=== PATIENT | female | born 1945 | race Caucasian/White ===

== ENCOUNTER 2017-08-25 14:00 | Inpatient (IN) ==
[2017-08-25 17:55] LABS: Appearance,Urine CLEAR; Bilirubin,Urine NEG (NEG); Color,Urine YELLOW; Glucose,Urine (UA) NEGATIVE (NEG); Leukocyte Esterase,Urine NEG /uL (NEG); Nitrate,Urine NEG (NEG); Protein,Urine NEG (NEG); Specific Gravity,Urine 1.017 (1.000-1.035); Urine Blood NEG mg/dL (<0.03); Urobilinogen,Urine NEG (NEG)
[2017-08-25 19:58] LABS: Blood Urea Nitrogen 15 mg/dl (8-23)
[2017-08-25 20:24] LABS: Basophils # (Auto) 0 K/mcL (0.0-0.3); Basophils % (Auto) 0.3 % (0.0-2.0); Eosinophils # (Auto) 0.2 K/mcL (0.0-0.7); Eosinophils % (Auto) 2.6 % (0.0-7.0); Granulocytes % (Auto) 63.4 % (38.0-78.0); Lymphocytes # (Auto) 1.6 K/mcL (1.5-4.8); Lymphocytes % (Auto) 27.4 % (15.5-49.0); Mean Cell Volume 94.4 fL (80.0-100.0); Mean Corpuscular HGB Conc 33.8 g/dL (31.0-36.0); Monocytes # (Auto) 0.4 K/mcL (0.1-0.9); Monocytes % (Auto) 6.3 % (1.0-12.0); Platelet Count 225 K/mcL (140-440); RBC 4.37 M/mcL (4.00-5.20); Red Cell Distribution Width 13.4 % (11.5-14.5)
[2017-08-31] MEDS ORDERED: CELECOXIB 200 MG CAPSULE PO SCH (05:00)
[2017-08-31] MEDS ORDERED: PREGABALIN 75 MG CAPSULE PO SCH (05:00)
[2017-08-31] MEDS ORDERED: ceFAZolin 1 GM VIAL IV SCH (05:00)
[2017-08-31] MEDS ORDERED: oxyCODONE 10 MG TAB.ER.12H PO SCH (05:00)
[2017-08-31] MEDS ORDERED: GENTAMICIN SULFATE 800 MG/20 ML VIAL IR ONE (12:42)
[2017-08-31] MEDS ORDERED: BENZOCAINE/MENTHOL 1 LOZENGE PO PRN ×2 (13:28→13:40)
[2017-08-31] MEDS ORDERED: PROMETHAZINE 25 MG/ML VIAL IV PRN (13:28)
[2017-08-31] MEDS ORDERED: diphenhydrAMINE 50 MG/ML VIAL IV PRN (13:28)
[2017-08-31] MEDS ORDERED: IPRATROPIUM/ALBUTEROL 3 ML AMPUL.NEB NEB PRN (13:28)
[2017-08-31] MEDS ORDERED: ACETAMINOPHEN 1,000 MG/100 ML BOTTLE IV ONE (13:28)
[2017-08-31] MEDS ORDERED: ONDANSETRON 4 MG/2 ML VIAL IV PRN ×2 (13:28→13:40)
[2017-08-31] MEDS ORDERED: NALOXONE HCL 0.4 MG/ML VIAL IV PRN (13:28)
[2017-08-31] MEDS ORDERED: fentaNYL 100 MCG/2 ML VIAL IV PRN (13:28)
[2017-08-31] MEDS ORDERED: LACTATED RINGERS 250 ML IV PRN (13:28)
[2017-08-31] MEDS ORDERED: FLUMAZENIL 0.1 MG/ML ML IV PRN (13:28)
[2017-08-31] MEDS ORDERED: MEPERIDINE 25 MG/ML SYRINGE IV PRN (13:28)
[2017-08-31] MEDS ORDERED: LACTATED RINGERS 1,000 ML IV SCH (13:30)
[2017-08-31] MEDS ORDERED: RIZATRIPTAN 10 MG TABLET PO PRN (13:38)
[2017-08-31] MEDS ORDERED: POLYVINYL ALCOHOL OPHTH DROPS 15ML BOTTLE OU PRN (13:38)
[2017-08-31] MEDS ORDERED: SENNOSIDES/DOCUSATE SODIUM 1 TAB TABLET PO PRN (13:38)
[2017-08-31] MEDS ORDERED: LORazepam 1 MG TABLET PO PRN (13:38)
--- NOTE | 2017-08-31 13:38 | Brief Operative Note ---
Date of procedure: 08/31/17 Pre-op diagnosis: left hip oa Post-op diagnosis: same Procedure: left total hip arthroplasty Grafts/Implants: Yes Anesthesia: GETA Complications: none Surgeon: Ridge Michelle Dba: Karlie Arreola Estimated blood loss (cc): 100 Specimens Removed/Pathology: none sent Condition: stable Disposition: PACU
[2017-08-31] MEDS ORDERED: ONDANSETRON ODT 4 MG TABLET SL PRN (13:40)
[2017-08-31] MEDS ORDERED: METHOCARBAMOL 750 MG TABLET PO PRN (13:40)
[2017-08-31] MEDS ORDERED: DEXTROSE 31 GM ORAL.SUSP PO PRN (13:40)
[2017-08-31] MEDS ORDERED: POLYETHYLENE GLYCOL 3350 17 GM PACKET PO PRN (13:40)
[2017-08-31] MEDS ORDERED: HYDROmorphone 2 MG/ML SYRINGE IV PRN (13:40)
[2017-08-31] MEDS ORDERED: FLEETS ADULT ENEMA PR PRN (13:40)
[2017-08-31] MEDS ORDERED: KETOROLAC 15 MG/ML VIAL IV PRN (13:40)
[2017-08-31] MEDS ORDERED: HYDROcodone/APAP 10/325MG TABLET PO PRN (13:40)
[2017-08-31] MEDS ORDERED: BISACODYL 10 MG SUPP.RECT PR PRN (13:40)
[2017-08-31] MEDS ORDERED: MAGNESIUM HYDROXIDE 30 ML ORAL.SUSP PO PRN (13:40)
[2017-08-31] MEDS ORDERED: TRANEXAMIC ACID 1,000 MG/10 ML VIAL IV ONE ×2 (13:40→13:59)
[2017-08-31] MEDS ORDERED: DEXTROSE 50% 50 ML VIAL IV PRN (13:40)
[2017-08-31] MEDS ORDERED: PHENYLEPHRINE 10 MG/ML VIAL IV ONE (13:59)
[2017-08-31] MEDS ORDERED: PROPOFOL 200 MG/20 ML VIAL IV ONE (13:59)
[2017-08-31] MEDS ORDERED: LIDOCAINE HCL/PF 100 MG/5 ML SYRINGE IV ONE (13:59)
[2017-08-31] MEDS ORDERED: KETAMINE 10 MG/ML ML IV ONE (13:59)
[2017-08-31] MEDS ORDERED: ONDANSETRON 4 MG/2 ML VIAL IV ONE (13:59)
[2017-08-31] MEDS ORDERED: DEXAMETHASONE 10 MG/ML VIAL IV ONE (13:59)
[2017-08-31] MEDS ORDERED: GLYCOPYRROLATE 0.2 MG/ML VIAL IV ONE (13:59)
[2017-08-31] MEDS ORDERED: ePHEDrine 50 MG/ML AMPUL IV ONE (13:59)
[2017-08-31] MEDS ORDERED: MIDAZOLAM 2 MG/2 ML VIAL IV ONE (13:59)
--- NOTE | 2017-08-31 14:08 | Operative Note ---
DATE OF OPERATION: 08/31/2017 PREOPERATIVE DIAGNOSIS: Degenerative joint disease, left hip. POSTOPERATIVE DIAGNOSIS: Degenerative joint disease, left hip. PROCEDURE: Left total hip arthroplasty. SURGEON: Trenton Michelle M.D. SITE SAFETY COORDINATOR SURGEON: Karlie Arreola PA-C ANESTHESIA: Spinal with LMA assist. ESTIMATED BLOOD LOSS: 100 mL COMPLICATIONS: None noted. SPECIMENS REMOVED: None. DRAINS: None. IMPLANTS: DePuy Woodbury Gription acetabular shell 52 mm, DePuy [place] AltrX polyethylene acetabular liner neutral 36 x 52, DePuy Tri-Lock BPS femoral stem with Gription size 6 standard, DePuy Biolox Delta ceramic femoral head +1.5 36 mm, DePuy [place] hole eliminator PS. INDICATIONS: The patient has had a longstanding history of worsening pain in the hip that has failed conservative treatment. Radiographs have confirmed advanced degenerative joint disease. After a long discussion about treatment options, the patient elected to proceed with a hip arthroplasty. The risks and benefits were discussed with the patient in detail including, but not limited to, the risks of anesthesia, problems with the heart or lungs related to anesthesia, infection, compromise or injury to the nerves and blood vessels, deep venous thrombosis, pulmonary embolism, pneumonia, continued pain after surgery, worsening pain or symptoms after surgery, swelling, loss of motion, instability, leg length discrepancy, and need for repeat surgery. DESCRIPTION OF PROCEDURE: The patient was seen in pre-anesthesia waiting room where all questions were answered and the correct side and site were identified and marked. The patient was then brought to the operating room and administered the anesthetic and given pre-operative antibiotics. A time-out was then called. The patient was placed in the lateral decubitus position with all prominences well-padded using the [place] frame and the extremity was prepped and draped in the usual sterile fashion. Anesthesia gave the patient 1 gm of tranexamic acid via an intravenous route. A standard posterior approach was made. We dissected through the skin and subcutaneous tissue to the deep fascia. The deep fascia was split in line with the incision and a Charnley retractor was placed. We exposed, tagged, and incised the short external rotators and piriformis tendon and retracted them posteriorly to help protect the sciatic nerve which was palpated throughout the case. We then performed a T-capsulotomy and tagged the capsule edges. Prior to dislocating the hip, we set a length and offset gauge from a Steinmann pin in the iliac wing to a manjit on the greater trochanter. The hip was then dislocated and a femoral neck osteotomy was performed to the pre-surgical templated level off the lesser trochanter. The head was removed and sized. We next turned our attention to the acetabulum. Retractors were placed for optimal visualization. A complete labral excision was performed. The capsule was preserved for later closure. We began reaming using anatomic landmarks with the DePuy Woodbury acetabular system. We medialized the cup and reamed up to provide good fill and coverage of the trial. When the trial was stable and appropriately positioned with approximately 20 degrees of anteversion and 45 degrees of abduction, we impacted the DePuy Woodbury cup and placed a cancellous screw in the posterior-superior quadrant. Osteophytes were removed from around the shell. We placed the trial liner and turned our attention to the femur. We placed retractors for visualization, internally rotated the femur, and established intramedullary access. We broached using the DePuy Tri-Lock stem to a stable platform medial, lateral, and rotationally with the appropriate version. We then performed a calcar reaming off the broach. Trials were then placed and optimized for leg length and stability. We used the leg length and offset guide to confirm our trials. Best stability, length, and offset characteristics were obtained with these sizes. We removed all trials and impacted the polyethylene acetabular liner in a standard fashion after a thorough irrigation. We then impacted the femoral stem to its broached location and placed the head. Final reduction was performed. Again, good stability, leg length, and offset characteristics were noted. We irrigated with three liters of antibiotic saline. We closed the capsule with #2 FiberWire. We placed a deep drain and closed the fascia with a combination of looped #0 Maxon and #0 Vicryl. We closed the subcutaneous tissue and skin in layers out to melanie in the skin. A sterile pressure dressing and abduction wedge was applied. All needle and sponge counts were correct. The patient was transferred to the recovery room in stable condition. ANAND:tristen Job ID: [id number] Doc ID: [id number] Trenton Michelle MD
--- NOTE | 2017-08-31 14:45 | XRay Report ---
CLINICAL INFORMATION: Postsurgical follow-up TECHNIQUE: AP bilateral hips. Crosstable lateral left hip. COMPARISON: Preoperative evaluation dated 01/01/2017 FINDINGS: Status post bilateral total hip arthroplasty. Left hip arthroplasty was done in the interval since previous examination. Normal anatomic alignment. IMPRESSION: Bilateral total hip arthroplasties Interpreted and Authenticated by: Ridge Esquivel 08/31/17
[2017-08-31] MEDS: 0.9 % SODIUM CHLORIDE 1,000 ML IV SCH (15:05)
[2017-08-31] MEDS: CARVEDILOL 3.125 MG TABLET PO SCH (16:52)
[2017-08-31] MEDS: oxyCODONE/APAP 5/325MG TABLET PO PRN (16:52)
[2017-08-31] MEDS: INSULIN LISPRO 1 UNIT/0.01 ML UNIT SQ SCH ×2 (16:53→20:47)
[2017-08-31] MEDS: 0.9 % SODIUM CHLORIDE 10 ML SYRINGE IV SCH ×2 (16:54→23:28)
[2017-08-31] MEDS: ASPIRIN 325 MG ENTERIC COATED TABLET PO SCH (20:24)
[2017-08-31] MEDS: ceFAZolin 1 GM VIAL IV SCH (20:24)
[2017-08-31] MEDS: DOCUSATE SODIUM 100 MG CAPSULE PO SCH (20:25)
[2017-08-31] MEDS: TRIAMCINOLONE CREAM 0.1% 15G 1 DOSE TUBE TOPICAL SCH (20:50)
[2017-08-31] MEDS ORDERED: GABAPENTIN 300 MG CAPSULE PO SCH (21:00)
[2017-08-31] MEDS ORDERED: SENNOSIDES 1 TABLET PO SCH (21:00)
[2017-08-31] MEDS ORDERED: SIMVASTATIN 10 MG TABLET PO SCH (21:00)
[2017-08-31] MEDS ORDERED: LATANOPROST OPHTH DROPS 2.5ML BOTTLE OU SCH (21:00)
[2017-08-31] MEDS ORDERED: LOSARTAN 50 MG TABLET PO SCH (21:00)
[2017-09-01] MEDS: 0.9 % SODIUM CHLORIDE 1,000 ML IV SCH ×2 (00:05→04:24)
[2017-09-01] MEDS: oxyCODONE/APAP 5/325MG TABLET PO PRN ×3 (00:48→11:31)
[2017-09-01] MEDS: 0.9 % SODIUM CHLORIDE 10 ML SYRINGE IV SCH ×2 (00:52→04:24)
[2017-09-01] MEDS: ceFAZolin 1 GM VIAL IV SCH (04:24)
--- NOTE | 2017-09-01 07:18 | Discharge Summary ---
Providers - Providers Patient information: Note initiated : 09/01/17 at 7:16 am Service Date, if different from initiated Date: [] Patient: Zeynep Moreno 71 y/o F admitted on 08/31/17 for Left Total Hip Arthroplasty Posterior. Chief Complaint: [s/p left ZORAIDA Patient is POD #1 s/p left ZORAIDA. She is doing quite well and reports minimal pain. She denies numbness, tingling or calf pain in either lower extremity. She has no questions or concerns at this time.] Discharge date: 09/01/17 Hospitalization Hospital course: Patient was brought to the OR yesterday for left ZORAIDA which went on without complication. She was admitted overnight for pain control/observation. She will d/c to home today or tomorrow and follow up in 10-14 days for post op care. Discharge diagnosis: hip osteoarthritis Exam - Exam Incision healing: Yes Incision draining: No Incision red: No Incision swollen: No Incision inflamed: No Clean and dry: Yes Weight bearing status: as tolerated (with assistive device) Ortho Discharge - ZORAIDA - Patient Instructions Diet: Regular Diet Activity: activity as tolerated, ambulate with assistive device, weight bearing as tolerated Total Hip Protocol: Follow activity instructions as provided by Physical Therapy. Dressing Care: May shower in 2 days - Follow Up Plan Follow Up Appointments: Karlie Arreola PA-C [Physician Mincemeat Maker] - 09/15/17 10:00 am Disposition: Home, Self-Care Prognosis: Fair Rehab Potential: Fair Overall status at discharge: patient is progressing back to baseline - Orders For Discharge Prescriptions: Aspirin [Ecotrin] 325 mg PO BID #60 tab.ec oxyCODONE/APAP [Percocet 5-325 mg] 1 - 2 tab PO Q4-6HP PRN #60 tab PRN Reason: Pain Additional Discharge Orders: Physical Therapy at Discharge - ZORAIDA Location: Determined By Patient Pending Studies Resuscitation Status Full Code Diet Regular Diet Start WedAug 31 134 Aspirin (Ecotrin) 325 mg PO BID [facility] Last Admin: 08/31/17 20:24 Dose: 325 mg Carvedilol (Coreg) 3.125 mg PO BIDCC [facility] Last Admin: 08/31/17 16:52 Dose: 3.125 mg Diagnostic Test (Pha) (Accu-Chek) 1 each FS ACHS [facility] Last Admin: 08/31/17 20:37 Dose: 1 each Admin: 08/31/17 16:53 Dose: 1 each Docusate Sodium (Colace) 100 mg PO BID [facility] Last Admin: 08/31/17 20:25 Dose: 100 mg Gabapentin (Neurontin) 1,200 mg PO QHS [facility] Last Admin: 08/31/17 22:36 Dose: 1,200 mg Hydromorphone HCl (Dilaudid) 0 mg IV Q2HP PRN PRN Reason: PAIN LEVEL > 6 Last Admin: 08/31/17 17:44 Dose: 1 mg Sodium Chloride (Sodium Chloride 0.9%) 1,000 mls @ 125 mls/hr IV .Q8H [facility] Last Admin: 09/01/17 04:24 Dose: Admin: 09/01/17 00:05 Dose: Not Given Infusion: 08/31/17 22:38 Dose: 125 mls/hr Admin: 08/31/17 15:05 Dose: 125 mls/hr Insulin Human Lispro (Humalog) 0 unit SQ ACHS [facility] PRN Reason: Protocol Last Admin: 08/31/17 20:47 Dose: 6 unit Admin: 08/31/17 16:53 Dose: Not Given Ketorolac Tromethamine (Toradol) 15 mg IV Q6HP PRN PRN Reason: Pain Stop: 09/02/17 13:42 Last Admin: 08/31/17 20:47 Dose: 15 mg Latanoprost (Xalatan Ophth Drops) 1 gtt OU [facility] Last Admin: 08/31/17 22:37 Dose: 1 gtt Losartan Potassium (Cozaar) 100 mg PO [facility] Last Admin: 08/31/17 20:25 Dose: 100 mg Oxycodone/Acetaminophen (Percocet 5-325 Mg) 1 - 2 tab PO Q4-6HP PRN PRN Reason: Pain Last Admin: 09/01/17 00:48 Dose: 2 tab Admin: 08/31/17 16:52 Dose: 2 tab Senna (Senokot) 2 tab PO [facility] Last Admin: 08/31/17 20:25 Dose: 2 tab Simvastatin (Zocor) 5 mg PO [facility] Last Admin: 08/31/17 20:24 Dose: 5 mg Sodium Chloride (Saline Flush) 10 ml IV Q8 [facility] Last Admin: 09/01/17 04:24 Dose: 10 ml Admin: 09/01/17 00:52 Dose: 10 ml Admin: 08/31/17 23:28 Dose: Not Given Admin: 08/31/17 16:54 Dose: Not Given Triamcinolone Acetonide (Kenalog Cream 0.1%) 1 dose TOPICAL BID [facility] Last Admin: 08/31/17 20:50 Dose: Not Given Shift Summary 09/01/17 03:25 Shift Summary by Too Aguirre on RA. Dressing to left hip CDI. No complaints of numbness or tingling. Ambulates to BR w/FWW and SBA. Ambulated in halls x1 this shift. Receiving 2 percocets and toradol for pain control. Last admin of percocet @ 49 and toradol @ 2049. Tolerating diet and oral fluids. IV to left FA SL. PVR's have been 136 & 146mL tonight. Using IS. Initialized on 09/01/17 03:25 - END OF NOTE Exam Vital signs: Temp Pulse Resp BP Pulse Ox 98.3 F 72 15 95/58 97 09/01/17 06:46 09/01/17 04:00 09/01/17 06:46 09/01/17 06:46 09/01/17 06:46 Musculoskeletal: other (full AROM right LE & left knee/ankle/foot. b/l LE NVI. Motor and sensory grossly intact) Skin: other (incision CDI without erythema or drainage) Neurologic: sensation intact to touch Psychiatric: oriented to person, place and time Additional findings: left hip x-ray reviewed, shows an intact and appropriately aligned total arthroplasty with no evidence of bony injury or other acute abnormalities.
[2017-09-01] MEDS: INSULIN LISPRO 1 UNIT/0.01 ML UNIT SQ SCH ×2 (07:21→11:34)
[2017-09-01] MEDS ORDERED: OMEPRAZOLE 20 MG CAPSULE PO PRN (07:30)
[2017-09-01] MEDS ORDERED: metFORMIN 850 MG TABLET PO SCH (08:00)
[2017-09-01] MEDS: ASPIRIN 325 MG ENTERIC COATED TABLET PO SCH (08:25)
[2017-09-01] MEDS: DOCUSATE SODIUM 100 MG CAPSULE PO SCH (08:25)
[2017-09-01] MEDS: CARVEDILOL 3.125 MG TABLET PO SCH (08:26)
[2017-09-01] MEDS: TRIAMCINOLONE CREAM 0.1% 15G 1 DOSE TUBE TOPICAL SCH (08:27)
[2017-09-01] MEDS ORDERED: FEXOFENADINE 180 MG TABLET PO SCH (09:00)
[2017-09-01] MEDS ORDERED: TRIAMTERENE/HYDROCHLOROTHIAZID 1 TABLET PO SCH (09:00)
== END 2017-09-01 14:00 | disposition home or self-care (01) | DRG 470 ==
LOC: MEDSUR 08-31 09:43
PROVIDERS: ADMIT Orthopaedic Surgery Sports Medicine; ATTEND Orthopaedic Surgery Sports Medicine

== ENCOUNTER 2018-01-31 06:43 | Inpatient (IN) ==
[2018-01-31] MEDS ORDERED: IOPAMIDOL 100 ML BOTTLE IV ONE (06:44)
[2018-01-31] MEDS ORDERED: ONDANSETRON 4 MG/2 ML VIAL IV ONE (07:11)
[2018-01-31] MEDS: LACTATED RINGERS 1,000 ML IV SCH (07:13)
--- NOTE | 2018-01-31 07:25 | Emergency Department Note ---
Abdominal Pain HPI - General Chief Complaint: Abdominal Pain Stated Complaint: abd pain Time Seen by Provider: 01/31/18 06:48 Source: patient Mode of arrival: ambulatory Limitations: no limitations - History of Present Illness HPI Narrative: This patient began having lower abdominal pain during the night associated with some nausea. She thought perhaps she might be constipated and she has been taking some iron and oxycodone. She is scheduled for a knee replacement tomorrow. She is diagnosed with ovarian cancer 2 years ago and has had 3 surgeries for that. This pain is constant in the pelvic area. - Related Data Home Medications Medication Instructions Recorded Confirmed latanoprost 0.005 % eye drops 1 drp OU HS 09/30/15 01/25/18 lorazepam 1 mg tablet 1 mg PO HSP PRN 7 Days #28 tab 12/01/16 01/25/18 omeprazole 20 mg capsule,delayed 20 mg PO DAILYP PRN cap 08/19/17 01/25/18 release Cyanocobalamin (Vitamin B-12) 500 mcg PO DAILY 08/25/17 01/25/18 [Vitamin B-12] Lactobacillus [Culturelle] 1 cap PO DAILY 08/25/17 01/25/18 Multivit,Ther Iron,Ca,FA & Min 1 tab PO DAILY 08/25/17 01/25/18 [Multivitamin W/Minerals] Polyvinyl Alcohol [Liquitears] 1 drp OU DAILYP PRN 08/25/17 01/25/18 Sennosides/Docusate Sodium 1 tab PO DAILYP PRN 08/25/17 01/25/18 [Senna-Docusate Sodium Tablet] metFORMIN HCL [Glucophage] 850 mg PO [facility] 08/25/17 01/25/18 folic acid 400 mcg tablet 400 mcg PO QDAY 11/11/17 01/25/18 gabapentin 300 mg capsule 1,200 mg PO QPM 90 Days #360 cap 11/11/17 01/25/18 pyridoxine (vitamin B6) 100 mg 100 mg PO QDAY tab 11/11/17 01/25/18 tablet Calcium Carbonate/Vitamin D3 3 tab PO DAILY 01/25/18 01/25/18 [Calcium 500-Vit D3 600 Caplet] Ferrous Sulfate [Feosol] 325 mg PO HS 01/25/18 01/25/18 Previous Rx's Medication Instructions Recorded oxyCODONE/APAP [Percocet 5-325 mg] 1 - 2 tab PO Q4-6HP PRN #60 tab 09/01/17 losartan 100 mg tablet 100 mg PO HS #90 tab 11/12/17 rizatriptan 10 mg tablet 10 mg PO DAILYP PRN #18 tab 11/30/17 simvastatin 5 mg tablet 5 mg PO HS #90 tab 12/15/17 triamterene 37.5 1 tab PO DAILY #90 tab 01/05/18 mg-hydrochlorothiazide 25 mg tablet carvedilol 3.125 mg tablet 3.125 mg PO BID #180 tab 01/13/18 ropinirole 0.25 mg tablet 0.5 mg PO QPM #180 tab 01/21/18 Allergies Allergy/AdvReac Type Severity Reaction Status Date / Time latex Allergy Mild Rash Verified 01/31/18 06:48 Review of Systems All systems ED: reviewed and negative except as stated. Abdominal Pain PMH - Past Medical History [facility] Narrative: Medical History (Last Reviewed 11/19/17 @ 18:40 by Jackson Hoff PA-C) Enterocutaneous fistula (Resolved) Ovarian cancer (Chronic) Urinary tract infection (Resolved) Abdominal pain (Chronic) Large bowel obstruction (Resolved) Mass of colon (Resolved) Hyponatremia (Resolved) Hypokalemia (Resolved) IBS (irritable bowel syndrome) (Chronic) Gastritis (Resolved) Bronchitis with bronchospasm (Resolved) Epistaxis (Chronic) Trochanteric bursitis (Resolved 06/01/12) Sleep apnea (Chronic) Pseudophakia (Chronic) Overweight (Chronic) Osteopenia (Chronic) Open-angle glaucoma (Chronic) Onychomycosis (Chronic 07/11/13) Lung nodule (Resolved 12/21/14) Liver lesion (Chronic) Essential hypertension (Chronic) Hepatic cyst (Chronic) Headache (Chronic 07/11/13) Gastroesophageal reflux (Chronic) Diverticulosis of colon (Chronic) Diverticulitis of colon (Resolved) 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) Diabetes mellitus, type II (Chronic) DJD (degenerative joint disease) (Chronic) Colonic polyp (Chronic) Bronchitis (Chronic 07/11/13) Past Surgical History (Last Reviewed 11/19/17 @ 18:40 by Jackson Hoff PA-C) History of exploratory laparotomy (Chronic 11/14/16) History of appendectomy (Resolved) History of cataract surgery (Resolved) History of cholecystectomy (Resolved) History of colonoscopy (Resolved 10/04/13) History of colostomy reversal (Resolved 10/26/16) History of esophagogastroduodenoscopy (Resolved) History of hysterectomy (Resolved 10/26/16) History of left knee replacement (Resolved) History of resection of large bowel (Resolved Unknown) History of resection of small bowel (Resolved 10/26/16) History of right hip replacement (Resolved) History of salpingoophorectomy (Resolved 10/26/16) History of total left hip arthroplasty (Resolved) Family History (Last Reviewed 11/19/17 @ 18:40 by Jackson Hoff PA-C) Aunt Cardiovascular disease Uncle Cardiovascular disease Diabetes mellitus Mother Malignant neoplasm of ascending colon Father Family history of leukemia Medical history: Reports: DM, GERD, glaucoma, hyperlipidemia, hypertension, osteoporosis, other Family history: Reports: no significant family history - Social History Smoking status: Never smoker Alcohol use: Reports: Rarely Drug use: Reports: none Physical Exam Limitations: no limitations General appearance: alert Head: atraumatic Eye: Present: normal appearance ENT: normal exam Neck: Present: normal inspection Chest: Present: normal inspection Respiratory: Present: normal lung sounds bilaterally Cardiovascular: Present: regular rate, normal rhythm, normal heart sounds Abdominal: Present: soft, tenderness, normal bowel sounds. Absent: distention, guarding, rebound Abdominal tenderness: Present: suprapubic, mild Neurological: Present: alert Psychiatric: Present: normal affect, normal mood Skin: Present: warm, dry, intact Course Vital Signs Temperature 97.9 F 01/31/18 06:44 Pulse Rate 80 01/31/18 06:44 Respiratory Rate 18 01/31/18 06:44 Blood Pressure 146/78 01/31/18 06:44 Pulse Oximetry (%) 98 01/31/18 06:44 Temperature 97.9 F 01/31/18 06:44 Pulse Rate 78 01/31/18 08:46 Respiratory Rate 18 01/31/18 06:44 Blood Pressure 132/72 01/31/18 08:46 Pulse Oximetry (%) 98 01/31/18 08:46 Abdominal Pain - MDM Narrative Medical decision making narrative: This patient CT is pending final disposition per Dr. Tinoco. - Lab Data Lab results reviewed: Yes I reviewed the patient's lab results. Result diagrams: 01/31/18 07:12 01/31/18 07:12 Lab Results 01/31/18 01/31/18 Range/Units 07:12 07:12 WBC 5.9 (4.5-11.0) K/mcL RBC 4.31 (4.00-5.20) M/mcL Hgb 13.4 (12.0-15.0) g/dL Hct 39.5 (36.0-48.0) % POC Hct 39.0 (36.0-48.0) % MCV 91.6 (80.0-100.0) fL MCH 31.1 (26.0-34.0) pg MCHC 34.0 (31.0-36.0) g/dL RDW 15.1 H (11.5-14.5) % Plt Count 202 (140-440) K/mcL MPV 9.0 (7.4-10.4) fL Gran % 83.0 H (38.0-78.0) % Lymph % (Auto) 10.1 L (15.5-49.0) % [place] % (Auto) 6.3 (1.0-12.0) % Eos % (Auto) 0.3 (0.0-7.0) % Baso % (Auto) 0.3 (0.0-2.0) % Gran # 4.9 (1.8-8.0) K/mcL Lymph # (Auto) 0.6 L (1.5-4.8) K/mcL [place] # (Auto) 0.4 (0.1-0.9) K/mcL Eos # (Auto) 0 (0.0-0.7) K/mcL Baso # (Auto) 0 (0.0-0.3) K/mcL POC Sodium 134 (133-145) mmol/L Sodium 134 (133-145) mmol/L POC Potassium 3.3 (3.3-5.1) mmol/L Potassium 3.3 (3.3-5.1) mmol/L POC Chloride 91 L (96-108) mmol/L Chloride 91 L (96-108) mmol/L Carbon Dioxide 30 (22-30) mmol/L POC Total CO2 30 (22-30) mmol/L Anion Gap 13.0 (8-16) POC BUN 17 (8-23) mg/dl BUN 16 (8-23) mg/dl Creatinine 1.0 (0.6-1.1) mg/dl POC Creatinine 1.0 (0.6-1.1) mg/dl GFR Calculation 56 Glucose 157 H (70-105) mg/dL POC Glucose 157 H (70-105) mg/dL Calcium 9.6 (8.6-10.4) mg/dl POC WB Ioniz Calcium 1.11 L (1.16-1.32) mmol/L Total Bilirubin 1.2 H (0.0-1.0) mg/dL AST 20 (0-37) U/l ALT 21 (0-40) U/l Alkaline Phosphatase 74 (39-117) U/L Total Protein 6.7 (5.9-8.4) gm/dL Albumin 4.3 (3.2-5.2) gm/dL Globulin 2.4 (2.2-3.7) gm/dL Albumin/Globulin Ratio 1.8 (1.0-2.3) Disposition Pt seen by INDIVIDUAL SMALL GROUP INSTRUCTOR/PA only: No Referrals: Boom Shannon MD [Primary Care Provider] -
[2018-01-31 08:09] LABS: Basophils # (Auto) 0 K/mcL (0.0-0.3); Basophils % (Auto) 0.3 % (0.0-2.0); Eosinophils # (Auto) 0 K/mcL (0.0-0.7); Eosinophils % (Auto) 0.3 % (0.0-7.0); Lymphocytes # (Auto) 0.6 K/mcL (1.5-4.8); Lymphocytes % (Auto) 10.1 % (15.5-49.0); Mean Cell Volume 91.6 fL (80.0-100.0); Mean Corpuscular Hemoglobin 31.1 pg (26.0-34.0); Monocytes # (Auto) 0.4 K/mcL (0.1-0.9); Monocytes % (Auto) 6.3 % (1.0-12.0); Platelet Count 202 K/mcL (140-440); RBC 4.31 M/mcL (4.00-5.20); Red Cell Distribution Width 15.1 % (11.5-14.5)
[2018-01-31 08:32] LABS: ALT/SGPT 21 U/l (0-40); Albumin 4.3 gm/dL (3.2-5.2); Albumin/Globulin Ratio 1.8 (1.0-2.3); Alkaline Phosphatase 74 U/L (39-117); Blood Urea Nitrogen 16 mg/dl (8-23)
[2018-01-31 09:13] LABS: Appearance,Urine HAZY; Bilirubin,Urine NEG (NEG); Color,Urine YELLOW; Glucose,Urine (UA) NEGATIVE (NEG); Leukocyte Esterase,Urine NEG /uL (NEG); Protein,Urine NEG (NEG); Specific Gravity,Urine 1.017 (1.000-1.035); Urine Blood NEG mg/dL (<0.03); Urobilinogen,Urine NEG (NEG)
--- NOTE | 2018-01-31 10:12 | Cat Scan Report ---
CLINICAL INFORMATION: History of ovarian carcinoma. Abdominal pain COMPARISON: 03/25/2016 and 01/13/[address] TECHNIQUE: Following enteric contrast, 80 cc of Isovue-300 were injected intravenously, and 60 seconds later, 0.625 mm helical slices were obtained from the mid heart through the subtrochanteric regions. Following reconstruction, 2.5 mm sagittal, coronal and axial reformatted images were processed and reviewed at bone, lung and soft tissue windows. Five minutes later, 0.625 mm helical slices were obtained from the mid heart through the kidneys and viewed at soft tissue windows.The exam was performed using radiation dose optimization techniques including, but not limited to, automated exposure control, adjustment of the mA and/or kV according to patient size and use of iterative reconstruction technique. FINDINGS: Lung bases show no nodules or other abnormalities. No effusions. Visualized heart is unremarkable. Images through the abdomen show moderate stable fatty change within the liver. There are scattered cysts within the liver ranging up to 5.7 cm in the the posterior segment of the right hepatic lobe . These are all stable since the CT two years prior 03/25/2016. No evidence of hepatic metastases. Gallbladder is surgically absent. Intrahepatic common hepatic common bile ducts remain normal caliber. 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 Both kidneys are otherwise normal. The adrenal glands spleen, pancreas and aorta, including aortic branches, are normal in size, configuration and attenuation without focal lesion. Images through the pelvis show hysterectomy/oophorectomy changes. The urinary bladder is partially obscured by the beam hardening artifact from bilateral hip prostheses, but no gross abnormalities. There is a high-grade partial small bowel obstruction of the proximal jejunum with a transition point seen on coronal image 48, sagittal image 80 and axial image 99. At the transition point, multiple loops of moderately dilated proximal jejunum abruptly constrict into a decompressed distal small bowel. Ostensibly, this represents adhesion or stricture. The distal small bowel and colon are relatively decompressed. Partial colectomy changes are present near the splenic flexure and also in the distal sigmoid. There is no evidence of ascites, mesenteric studding, omental caking study other evidence for carcinomatosis - history of ovarian carcinoma acknowledged. Bone windows show stable degenerative changes in the lower thoracic and lumbar spine. IMPRESSION: 1. High-grade partial small bowel obstruction of the proximal jejunum ostensibly related to stricture or adhesions. The transition point is in the central false pelvis 2. No evidence of recurrent ovarian carcinoma 3. Stable hepatic cysts Interpreted and Authenticated by: Ridge Potts 01/31/18
[2018-01-31] MEDS ORDERED: ONDANSETRON 4 MG/2 ML VIAL IV PRN ×2 (10:52→15:15)
--- NOTE | 2018-01-31 10:55 | Emergency Department Note ---
Abdominal Pain HPI - General Chief Complaint: Abdominal Pain Stated Complaint: abd pain Time Seen by Provider: 01/31/18 06:48 Source: patient Mode of arrival: ambulatory Limitations: no limitations - History of Present Illness HPI Narrative: See history and physical dictated by Dr. mack. Patient had onset of abdominal pain approximately 8:30 PM last evening approximately 1 hour after eating dinner. Pain continued during the night as crampy bloating feeling with associated with nausea but no vomiting. She felt constipated. She has been taking iron for 2 weeks initially 1 per day and then recently 2 per day but not always faithful with this regimen. She also took a dose of oxycodone last evening for knee pain. She is scheduled for knee replacement surgery by Dr. Michelle tomorrow. She has not been eating or drinking during the night or this morning. - Related Data Home Medications Medication Instructions Recorded Confirmed latanoprost 0.005 % eye drops 1 drp OU HS 09/30/15 01/25/18 lorazepam 1 mg tablet 1 mg PO HSP PRN 7 Days #28 tab 12/01/16 01/25/18 omeprazole 20 mg capsule,delayed 20 mg PO DAILYP PRN cap 08/19/17 01/25/18 release Cyanocobalamin (Vitamin B-12) 500 mcg PO DAILY 08/25/17 01/25/18 [Vitamin B-12] Lactobacillus [Culturelle] 1 cap PO DAILY 08/25/17 01/25/18 Multivit,Ther Iron,Ca,FA & Min 1 tab PO DAILY 08/25/17 01/25/18 [Multivitamin W/Minerals] Polyvinyl Alcohol [Liquitears] 1 drp OU DAILYP PRN 08/25/17 01/25/18 Sennosides/Docusate Sodium 1 tab PO DAILYP PRN 08/25/17 01/25/18 [Senna-Docusate Sodium Tablet] metFORMIN HCL [Glucophage] 850 mg PO QAC 08/25/17 01/25/18 folic acid 400 mcg tablet 400 mcg PO QDAY 11/11/17 01/25/18 gabapentin 300 mg capsule 1,200 mg PO QPM 90 Days #360 cap 11/11/17 01/25/18 pyridoxine (vitamin B6) 100 mg 100 mg PO QDAY tab 11/11/17 01/25/18 tablet Calcium Carbonate/Vitamin D3 3 tab PO DAILY 01/25/18 01/25/18 [Calcium 500-Vit D3 600 Caplet] Ferrous Sulfate [Feosol] 325 mg PO HS 01/25/18 01/25/18 Previous Rx's Medication Instructions Recorded oxyCODONE/APAP [Percocet 5-325 mg] 1 - 2 tab PO Q4-6HP PRN #60 tab 09/01/17 losartan 100 mg tablet 100 mg PO HS #90 tab 11/12/17 rizatriptan 10 mg tablet 10 mg PO DAILYP PRN #18 tab 11/30/17 simvastatin 5 mg tablet 5 mg PO HS #90 tab 12/15/17 triamterene 37.5 1 tab PO DAILY #90 tab 01/05/18 mg-hydrochlorothiazide 25 mg tablet carvedilol 3.125 mg tablet 3.125 mg PO BID #180 tab 01/13/18 ropinirole 0.25 mg tablet 0.5 mg PO QPM #180 tab 01/21/18 Allergies Allergy/AdvReac Type Severity Reaction Status Date / Time latex Allergy Mild Rash Verified 01/31/18 06:48 Abdominal Pain PMH - Past Medical History Medical history: Reports: DM, GERD, glaucoma, hyperlipidemia, hypertension, osteoporosis, other Family history: Reports: no significant family history - Social History Smoking status: Never smoker Alcohol use: Reports: Rarely Drug use: Reports: none Physical Exam Limitations: no limitations General appearance: alert, in no apparent distress Head: atraumatic, normocephalic Eye: Present: EOMI Respiratory: Absent: respiratory distress Cardiovascular: Present: regular rate Abdominal: Present: soft, tenderness (Mostly in the left lower quadrant and mild but this is after pain medication.). Absent: distention, guarding, rebound , rigidity, organomegaly, ascites, mass Neurological: Present: alert, oriented X3 Psychiatric: Present: normal affect, normal mood Skin: Present: warm, dry Course Vital Signs Temperature 97.9 F 01/31/18 06:44 Pulse Rate 80 01/31/18 06:44 Respiratory Rate 18 01/31/18 06:44 Blood Pressure 146/78 01/31/18 06:44 Pulse Oximetry (%) 98 01/31/18 06:44 Temperature 97.9 F 01/31/18 06:44 Pulse Rate 81 06/18/18 10:30 Respiratory Rate 18 01/31/18 06:44 Blood Pressure 136/83 01/31/18 10:30 Pulse Oximetry (%) 97 01/31/18 10:30 Abdominal Pain - MDM Narrative Medical decision making narrative: Small bowel obstruction, high-grade, per CT of the abdomen. Labs are fairly unremarkable with a specific gravity of 1.017, normal CBC, normal CMP except for chloride of 91. Creatinine is 1.0 and past creatinines have been 0.6-1.0 most recently 0.9 quite frequently. 10:35 AM I spoke with Dr. Kendall, surgeon, regarding this patient's situation and he kindly accepted care of this patient being admitted to [facility] here at [facility]. - Lab Data Lab results reviewed: Yes I reviewed the patient's lab results. Result diagrams: 01/31/18 07:12 01/31/18 07:12 Lab Results 01/31/18 01/31/18 01/31/18 Range/Units 07:12 07:12 08:30 WBC 5.9 (4.5-11.0) K/mcL RBC 4.31 (4.00-5.20) M/mcL Hgb 13.4 (12.0-15.0) g/dL Hct 39.5 (36.0-48.0) % POC Hct 39.0 (36.0-48.0) % MCV 91.6 (80.0-100.0) fL MCH 31.1 (26.0-34.0) pg MCHC 34.0 (31.0-36.0) g/dL RDW 15.1 H (11.5-14.5) % Plt Count 202 (140-440) K/mcL MPV 9.0 (7.4-10.4) fL Gran % 83.0 H (38.0-78.0) % Lymph % (Auto) 10.1 L (15.5-49.0) % [place] % (Auto) 6.3 (1.0-12.0) % Eos % (Auto) 0.3 (0.0-7.0) % Baso % (Auto) 0.3 (0.0-2.0) % Gran # 4.9 (1.8-8.0) K/mcL Lymph # (Auto) 0.6 L (1.5-4.8) K/mcL [place] # (Auto) 0.4 (0.1-0.9) K/mcL Eos # (Auto) 0 (0.0-0.7) K/mcL Baso # (Auto) 0 (0.0-0.3) K/mcL POC Sodium 134 (133-145) mmol/L Sodium 134 (133-145) mmol/L POC Potassium 3.3 (3.3-5.1) mmol/L Potassium 3.3 (3.3-5.1) mmol/L POC Chloride 91 L (96-108) mmol/L Chloride 91 L (96-108) mmol/L Carbon Dioxide 30 (22-30) mmol/L POC Total CO2 30 (22-30) mmol/L Anion Gap 13.0 (8-16) POC BUN 17 (8-23) mg/dl BUN 16 (8-23) mg/dl Creatinine 1.0 (0.6-1.1) mg/dl POC Creatinine 1.0 (0.6-1.1) mg/dl GFR Calculation 56 Glucose 157 H (70-105) mg/dL POC Glucose 157 H (70-105) mg/dL Calcium 9.6 (8.6-10.4) mg/dl POC WB Ioniz Calcium 1.11 L (1.16-1.32) mmol/L Total Bilirubin 1.2 H (0.0-1.0) mg/dL AST 20 (0-37) U/l ALT 21 (0-40) U/l Alkaline Phosphatase 74 (39-117) U/L Total Protein 6.7 (5.9-8.4) gm/dL Albumin 4.3 (3.2-5.2) gm/dL Globulin 2.4 (2.2-3.7) gm/dL Albumin/Globulin Ratio 1.8 (1.0-2.3) Urine Color Yellow Urine Appearance Hazy Urine pH 7.0 (5.0-9.0) Ur Specific [place] 1.017 (1.000-1.035) Urine Protein Neg (NEG) mg/dL Urine Glucose (UA) Negative (NEG) mg/dL Urine Ketones Neg (NEG) mg/dL Urine Occult Blood Neg (<0.03) mg/dL Urine Nitrate Neg (NEG) Urine Bilirubin Neg (NEG) mg/dL Urine Urobilinogen Neg (NEG) mg/dL Ur Leukocyte Esterase Neg (NEG) /uL Ur Culture Indicated? No - Radiology Data Radiology results reviewed: Yes I reviewed the patient's radiology results. Disposition Pt seen by [facility] [facility] only: No Clinical Impression: Small bowel obstruction Abdominal pain Qualifiers: Abdominal location: left lower quadrant Qualified Code(s): R10.32 - Left lower quadrant pain Disposition: Xfer As Inpt ([facility]) Condition: Fair Referrals: Boom Shannon MD [Primary Care Provider] -
[2018-01-31] MEDS: 0.9 % SODIUM CHLORIDE 1,000 ML IV SCH ×3 (11:54→22:03)
--- NOTE | 2018-01-31 15:02 | General Surg History&Physical ---
History of Present Illness Patient information: Note initiated : 01/31/18 at 2:57 pm Service Date, if different from initiated Date: [] Patient: Zeynep Moreno a 72 y/o F admitted on 01/31/18 for Abd Pain. Chief Complaint: [small bowel obstruction] HPI: Ms. Moreno is a 72 year old F was admitted small bowel obstruction. The patient had onset of lower abdominal pain and bloating last evening after eating a regular meal. She did not have nausea or vomiting however. She had a small amount of flatus earlier during the day and then her last bowel movement was yesterday. Her weight has been stable. She states that the pain persisted all night she finally was seen in the emergency room with CT scan shows a definitive small bowel obstruction with a swirl of dilated loops of small bowel with proximal dilation and distal decompression. Colon is also decompressed. By history the patient presented in 2015 in March with a sigmoid colon mass with colon obstruction. On 27 March she had sigmoid colon resection with colostomy small bowel resection and left salpingo- oophorectomy. 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 She was referred to oncology and underwent chemotherapy. She then had total abdominal hysterectomy with right salpingo-oophorectomy and colostomy takedown on . She developed an anastomotic leak shortly thereafter and had exploratory laparotomy on 11/13/16. A hostile abdomen was encountered and the fistula could not be found. She was treated with an open abdomen with wound VAC and 2 months of TPN.. The fistula finally closed and she has done relatively well since then. Her CT shows changes suggestive of high-grade obstruction and she is counseled for laparotomy which will be done in the morning. Review of Systems - Constitutional weight gain - EENT Nose, mouth and throat: dry mouth - Cardiovascular no chest pain with activity, no dyspnea on exertion, no palpatations, no syncope - Respiratory snoring, no dyspnea on exertion, no wheezing - Gastrointestinal abdominal pain, cramping, heartburn, nausea, no vomiting - Musculoskeletal arthralgias, back pain, joint swelling, myalgias, numbness - Integumentary no changing lesions, no non-healing lesions, no pruritus, no rash - Neurological numbness, restless legs, no abnormal hearing, no confusion, no dizziness, no tremor(s) - Psychiatric anxiety, no depression - Endocrine no fatigue, no polydipsia, no polyphagia, no polyuria - Hematologic/Lymphatic no easy bleeding, no easy bruising, no lymphadenopathy - Allergic/Immunologic no tongue swelling, no throat swelling, no uticaria, no wheezing, no lip swelling Past History Past medical history: Metastatic ovarian carcinoma Diabetes mellitus type 2 Hypertension Gastroesophageal reflux disease Central obstructive sleep apnea Degenerative joint disease prior history of C. difficile colitis Past surgical history: Sigmoid colon resection with colostomy Small bowel resection Left salpingo-oophorectomy Total abdominal hysterectomy with right salpingo-oophorectomy Colostomy closure Exploratory laparotomy Cholecystectomy Left total knee arthroplasty Bilateral total hip arthroplasty Exploratory laparotomy with adhesiolysis Past family history: Coronary artery disease Diabetes mellitus Colon cancer Leukemia Past social history: Retired Former smoker Former drinker Denies drug use Medications and Allergies Home Medications Medication Instructions Recorded Confirmed Type latanoprost 0.005 % eye drops 1 drp OU HS 09/30/15 01/31/18 History lorazepam 1 mg tablet 1 mg PO HSP PRN 7 Days #28 tab 12/01/16 01/31/18 History omeprazole 20 mg capsule,delayed 20 mg PO DAILYP PRN cap 08/19/17 01/31/18 History release Cyanocobalamin (Vitamin B-12) 500 mcg PO DAILY 08/25/17 01/31/18 History [Vitamin B-12] Lactobacillus [Culturelle] 1 cap PO DAILY 08/25/17 01/31/18 History Multivit,Ther Iron,Ca,FA & Min 1 tab PO DAILY 08/25/17 01/31/18 History [Multivitamin W/Minerals] Polyvinyl Alcohol [Liquitears] 1 drp OU DAILYP PRN 08/25/17 01/31/18 History Sennosides/Docusate Sodium 1 tab PO DAILYP PRN 08/25/17 01/31/18 History [Senna-Docusate Sodium Tablet] metFORMIN HCL [Glucophage] 850 mg PO QAMCC 08/25/17 01/31/18 History oxyCODONE/APAP [Percocet 5-325 mg] 1 - 2 tab PO Q4-6HP PRN #60 tab 09/01/17 Rx folic acid 400 mcg tablet 400 mcg PO QDAY 11/11/17 01/31/18 History gabapentin 300 mg capsule 1,200 mg PO QPM 90 Days #360 cap 11/11/17 01/31/18 History pyridoxine (vitamin B6) 100 mg 100 mg PO QDAY tab 11/11/17 01/31/18 History tablet losartan 100 mg tablet 100 mg PO HS #90 tab 11/12/17 01/31/18 Rx rizatriptan 10 mg tablet 10 mg PO DAILYP PRN #18 tab 11/30/17 01/31/18 Rx simvastatin 5 mg tablet 5 mg PO HS #90 tab 12/15/17 01/31/18 Rx triamterene 37.5 1 tab PO DAILY #90 tab 01/05/18 01/31/18 Rx mg-hydrochlorothiazide 25 mg tablet carvedilol 3.125 mg tablet 3.125 mg PO BID #180 tab 01/13/18 01/31/18 Rx ropinirole 0.25 mg tablet 0.5 mg PO QPM #180 tab 01/21/18 01/31/18 Rx Calcium Carbonate/Vitamin D3 3 tab PO DAILY 01/25/18 01/31/18 History [Calcium 500-Vit D3 600 Caplet] Ferrous Sulfate [Feosol] 325 mg PO HS 01/25/18 01/31/18 History Allergies Allergy/AdvReac Type Severity Reaction Status Date / Time latex Allergy Mild Rash Verified 01/31/18 06:48 Exam Temp Pulse Resp BP Pulse Ox 97.6 F 73 16 119/77 93 01/31/18 12:00 01/31/18 11:12 01/31/18 12:00 01/31/18 12:00 01/31/18 12:00 - General physical appearance well developed, well nourished, no distress, moderate pain (diffuse lower abdominal tenderness) - Eyes PERRL, normal ocular movement - ENT normal pinna, normal nares, normal mucosa, no hearing loss, no congestion - Head Head exam IM: Present: atraumatic, normal inspection, normocephalic - Neck no masses, no bruits, trachea midline, no lymphadectomy, no venous distension - Cardiovascular Cardiovascular exam IM: Present: normal rate and rhythm, RRR, +S1, +S2. Absent : JVD, tachycardia - Respiratory normal expansion, normal respiratory effort, clear to percussion, clear to auscultation - Abdomen Abdomen: Present: soft, tender ( diffuse tenderness with guarding in lower abdomen), bowel sounds, distended ( moderate distention and lower abdomen) Hernia: Present: none - Genitourinary Present: normal external genitalia - Integumentary Present: no rash, no growths, no abnormal pigmentation - Neurologic Present: normal coordination, normal sensation - Musculoskeletal Present: normal gait, normal posture - Psychiatric Present: oriented to time, oriented to person, oriented to place, speech is normal, memory intact Assessment and Plan (1) Small bowel obstruction due to postoperative adhesions Status: Acute (2) Diabetes mellitus, type II Status: Chronic Qualifiers: Diabetes mellitus manager long term care insulin use: without manager long term care use Diabetes mellitus complication status: with neurologic complications Diabetes mellitus complication detail: with unspecified neuropathy Qualified Code(s): E11.40 - Type 2 diabetes mellitus with diabetic neuropathy, unspecified (3) Essential hypertension Status: Chronic Comment: Stable (4) Gastroesophageal reflux Status: Chronic Qualifiers: Esophagitis presence: esophagitis presence not specified Qualified Code(s) : K21.9 - Gastro-esophageal reflux disease without esophagitis (5) 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 Qualifiers: Osteoarthritis location: multiple joints Osteoarthritis type: primary Qualified Code(s): M15.0 - Primary generalized (osteo)arthritis
[2018-01-31] MEDS ORDERED: POTASSIUM PHOSPHATE 40 MEQ in DEXTROSE 5% IN WATER 500 ML IV ONE (16:00)
[2018-01-31] MEDS: PIPERACILLIN SODIUM/TAZOBACTAM 3.375 GM in DEXTROSE 5% IN WATER 50 ML IV SCH ×2 (16:01→20:29)
--- NOTE | 2018-01-31 16:43 | XRay Report ---
CLINICAL INFORMATION: PICC PLACEMENT COMPARISON: 03/01/2017 FINDINGS: Right PICC line tip overlies lies the tricuspid valve plane. Heart is mildly enlarged, but unchanged. Mediastinum and pulmonary vessels are normal. Lungs are clear. No effusions. IMPRESSION: PICC line tip overlies the tricuspid valve plane. Nurses were instructed to withdraw the line 4 cm Interpreted and Authenticated by: Ridge Potts 01/31/18
[2018-01-31] MEDS: PANTOPRAZOLE 40 MG VIAL IV SCH (16:48)
[2018-01-31] MEDS: 0.9 % SODIUM CHLORIDE 10 ML SYRINGE IV PRN ×2 (16:50→17:27)
[2018-01-31] MEDS: METOCLOPRAMIDE 10 MG/2 ML VIAL IV SCH (17:26)
[2018-01-31] MEDS: 0.9 % SODIUM CHLORIDE 10 ML SYRINGE IV SCH (20:34)
[2018-02-01] MEDS: METOCLOPRAMIDE 10 MG/2 ML VIAL IV SCH ×5 (00:05→23:52)
[2018-02-01] MEDS: PIPERACILLIN SODIUM/TAZOBACTAM 3.375 GM in DEXTROSE 5% IN WATER 50 ML IV SCH ×5 (00:05→23:52)
[2018-02-01] MEDS: 0.9 % SODIUM CHLORIDE 1,000 ML IV SCH ×4 (00:45→19:40)
[2018-02-01 05:54] LABS: Basophils # (Auto) 0 K/mcL (0.0-0.3); Basophils % (Auto) 0.3 % (0.0-2.0); Eosinophils # (Auto) 0.1 K/mcL (0.0-0.7); Eosinophils % (Auto) 0.9 % (0.0-7.0); Granulocytes % (Auto) 79.9 % (38.0-78.0); Lymphocytes # (Auto) 0.7 K/mcL (1.5-4.8); Lymphocytes % (Auto) 10.6 % (15.5-49.0); Mean Cell Volume 92.1 fL (80.0-100.0); Mean Corpuscular Hemoglobin 31.3 pg (26.0-34.0); Monocytes # (Auto) 0.5 K/mcL (0.1-0.9); Monocytes % (Auto) 8.3 % (1.0-12.0); Platelet Count 144 K/mcL (140-440); RBC 3.68 M/mcL (4.00-5.20); Red Cell Distribution Width 14.8 % (11.5-14.5)
[2018-02-01 06:33] LABS: ALT/SGPT 16 U/l (0-40); Albumin 3.5 gm/dL (3.2-5.2); Albumin/Globulin Ratio 1.8 (1.0-2.3); Alkaline Phosphatase 55 U/L (39-117); Bilirubin,Direct < 0.2 mg/dL (0.0-0.3); Blood Urea Nitrogen 11 mg/dl (8-23); Gamma Glutamyl Transpeptidase 13 U/L (5-36)
[2018-02-01] MEDS: 0.9 % SODIUM CHLORIDE 10 ML SYRINGE IV SCH ×2 (08:00→21:46)
[2018-02-01] MEDS: PANTOPRAZOLE 40 MG VIAL IV SCH ×2 (08:26→18:06)
[2018-02-01] MEDS ORDERED: DIATRIZOATE MEGLU/DIATRIZO SOD 30 ML BOTTLE PO ONE (11:28)
[2018-02-01] MEDS: LACTATED RINGERS 1,000 ML IV SCH (11:55)
[2018-02-01] MEDS ORDERED: POLYVINYL ALCOHOL OU PRN (11:57)
[2018-02-01] MEDS ORDERED: LORazepam 1 MG TABLET PO PRN (11:57)
[2018-02-01] MEDS: MAGNESIUM HYDROXIDE 30 ML ORAL.SUSP PO SCH ×3 (12:58→19:44)
--- NOTE | 2018-02-01 15:20 | General Surgery Progress Note ---
Subjective Patient reports: feels better, pain is less, flatus, bowel movement, afebrile Narrative: Note initiated : 02/01/18 at 3:18 pm Service Date, if different from initiated Date: [] Patient: Zeynep Moreno 72 y/o F admitted on 01/31/18 for Laparotomy Exploration General. Chief Complaint: [patient had a small bowel movement earlier this morning and passed a small amount of gas so a small bowel follow-through was done. The small bowel follow-through showed transit through the small bowel into the right colon at 30 minutes. It was throughout the colon at 1 hour 30 minutes. She has had multiple bowel movements of variable consistency since that time. All of her lower abdominal symptoms have resolved. Her surgery was canceled and she is now being given milk of magnesia 3. It is anticipated that she should not need to have surgery. She has tolerated clear liquids so her diet will be advanced to full liquids.her white blood count remains normal.] Objective Temp Pulse Resp BP Pulse Ox 98.0 F 77 18 120/76 94 02/01/18 11:47 02/01/18 11:47 02/01/18 11:47 02/01/18 11:47 02/01/18 11:47 - Additional Data Intake & Output - Last 24 hours: Intake & Output 01/30/18 01/31/18 02/01/18 02/02/18 05:59 05:59 05:59 05:59 Intake Total 2659.0909 / 2659.0909 1050 / 1050 Output Total 500 / 500 Balance 2159.0909 / 2159.0909 1050 / 1050 Weight 176 lb 176 lb - General physical appearance well developed, well nourished, no distress, severe distress - Eyes PERRL, normal ocular movement - ENT normal pinna, normal nares, normal mucosa, no hearing loss, no congestion - Neck no masses, no bruits, trachea midline, no lymphadectomy, no venous distension - Respiratory normal expansion, normal respiratory effort, clear to auscultation - Cardiovascular Cardiovascular exam: Present: normal rate and rhythm, RRR, +S1, +S2. Absent: JVD, tachycardia - Abdomen non tender, bowel sounds (present), surgical scars (none), masses (none), distended (no distention noted; abdomen is soft and pliable with good active bowel sounds) - Integumentary no rash, no growths, no abnormal pigmentation - Neurologic normal coordination, normal sensation - Musculoskeletal normal gait, normal posture - Psychiatric oriented to time, oriented to person, oriented to place, speech is normal, memory intact - Labs 02/01/18 04:48 02/01/18 04:48 Diabetes panel 02/01/18 Range/Units 04:48 Sodium 142 (133-145) mmol/L Potassium 3.4 (3.3-5.1) mmol/L Chloride 103 (96-108) mmol/L Carbon Dioxide 28 (22-30) mmol/L BUN 11 (8-23) mg/dl Creatinine 0.7 (0.6-1.1) mg/dl Glucose 115 H (70-105) mg/dL Calcium 8.1 L (8.6-10.4) mg/dl AST 18 (0-37) U/l ALT 16 (0-40) U/l Alkaline Phosphatase 55 (39-117) U/L Total Protein 5.4 L (5.9-8.4) gm/dL Albumin 3.5 (3.2-5.2) gm/dL Triglycerides 42 (<150) mg/dl Calcium panel 02/01/18 Range/Units 04:48 Calcium 8.1 L (8.6-10.4) mg/dl Phosphorus 3.4 (2.7-4.5) mg/dL Albumin 3.5 (3.2-5.2) gm/dL Pituitary panel 02/01/18 Range/Units 04:48 Sodium 142 (133-145) mmol/L Potassium 3.4 (3.3-5.1) mmol/L Chloride 103 (96-108) mmol/L Carbon Dioxide 28 (22-30) mmol/L BUN 11 (8-23) mg/dl Creatinine 0.7 (0.6-1.1) mg/dl Glucose 115 H (70-105) mg/dL Calcium 8.1 L (8.6-10.4) mg/dl Adrenal panel 02/01/18 Range/Units 04:48 Sodium 142 (133-145) mmol/L Potassium 3.4 (3.3-5.1) mmol/L Chloride 103 (96-108) mmol/L Carbon Dioxide 28 (22-30) mmol/L BUN 11 (8-23) mg/dl Creatinine 0.7 (0.6-1.1) mg/dl Glucose 115 H (70-105) mg/dL Calcium 8.1 L (8.6-10.4) mg/dl Total Bilirubin 1.0 (0.0-1.0) mg/dL AST 18 (0-37) U/l ALT 16 (0-40) U/l Alkaline Phosphatase 55 (39-117) U/L Total Protein 5.4 L (5.9-8.4) gm/dL Albumin 3.5 (3.2-5.2) gm/dL Assessment and Plan (1) Small bowel obstruction due to postoperative adhesions Status: Acute Assessment and plan: Obstructive symptoms have improved and patient will be started on liquid diet. She will have follow-up abdominal x-rays in the morning. Current Visit: Yes (2) Diabetes mellitus, type II Status: Chronic Assessment and plan: Blood sugar prior to acceptable levels Current Visit: No (3) Essential hypertension Problem details: Stable Status: Chronic Current Visit: No (4) Gastroesophageal reflux Status: Chronic Current Visit: No (5) DJD (degenerative joint disease) Problem details: Right knee OA. Status: Chronic Current Visit: No - Time Spent With Patient Total time spent is greater than 50% in coordination of care (as documented) at patient's floor/unit and/or counseling patient:
[2018-02-01] MEDS: CARVEDILOL 3.125 MG TABLET PO SCH (18:06)
--- NOTE | 2018-02-01 19:16 | XRay Report ---
CLINICAL INFORMATION: High-grade partial small bowel obstruction of proximal jejunum - follow-up COMPARISON: Abdominal CT from 01/31/2018. TECHNIQUE: Following fraud prevention analyst film,, single contrast barium was administered orally and sequential images were obtained the GI tract over one hour and 40 minutes. FINDINGS: The stomach and small bowel are normal caliber. There is no evidence of obstruction in the proximal jejunum that was seen on CT. Barium transited through this region normally. Small bowel transit time 30 minutes. IMPRESSION: No evidence of small bowel obstruction. Negative exam Interpreted and Authenticated by: Ridge Potts 02/01/18
--- NOTE | 2018-02-01 19:17 | XRay Report ---
CLINICAL INFORMATION: Follow small bowel obstruction COMPARISON: Wall follow-through study performed earlier today FINDINGS: All of the barium, administered on the earlier small bowel follow-through exam has transited through the entire GI tract. The small bowel and colon are moderately decompressed with scattered air-fluid levels. Gas is noted in the distal sigmoid and rectum. IMPRESSION: Mild ileus pattern. No evidence of bowel obstruction Interpreted and Authenticated by: Ridge Potts 02/01/18
[2018-02-01] MEDS ORDERED: LOSARTAN 50 MG TABLET PO SCH (21:00)
[2018-02-01] MEDS ORDERED: LATANOPROST EYE OU SCH (21:00)
[2018-02-01] MEDS ORDERED: GABAPENTIN 400 MG CAPSULE PO SCH (21:00)
[2018-02-01] MEDS ORDERED: rOPINIRole 0.25 MG TABLET PO SCH (21:00)
[2018-02-02] MEDS: 0.9 % SODIUM CHLORIDE 1,000 ML IV SCH ×3 (04:01→09:10)
[2018-02-02] MEDS: PIPERACILLIN SODIUM/TAZOBACTAM 3.375 GM in DEXTROSE 5% IN WATER 50 ML IV SCH ×2 (05:13→12:06)
[2018-02-02] MEDS: METOCLOPRAMIDE 10 MG/2 ML VIAL IV SCH ×2 (05:14→12:06)
[2018-02-02 06:42] LABS: Basophils # (Auto) 0 K/mcL (0.0-0.3); Basophils % (Auto) 0.4 % (0.0-2.0); Eosinophils # (Auto) 0.1 K/mcL (0.0-0.7); Eosinophils % (Auto) 1.8 % (0.0-7.0); Granulocytes % (Auto) 67.5 % (38.0-78.0); Lymphocytes # (Auto) 0.9 K/mcL (1.5-4.8); Mean Cell Volume 92.6 fL (80.0-100.0); Mean Corpuscular HGB Conc 33.7 g/dL (31.0-36.0); Mean Corpuscular Hemoglobin 31.2 pg (26.0-34.0); Monocytes # (Auto) 0.5 K/mcL (0.1-0.9); Monocytes % (Auto) 10.3 % (1.0-12.0); Platelet Count 144 K/mcL (140-440); RBC 3.74 M/mcL (4.00-5.20); Red Cell Distribution Width 14.8 % (11.5-14.5)
[2018-02-02 07:15] LABS: ALT/SGPT 17 U/l (0-40); Albumin 3.6 gm/dL (3.2-5.2); Albumin/Globulin Ratio 1.5 (1.0-2.3); Alkaline Phosphatase 64 U/L (39-117); Bilirubin,Direct < 0.2 mg/dL (0.0-0.3); Blood Urea Nitrogen 5 mg/dl (8-23); Gamma Glutamyl Transpeptidase 14 U/L (5-36); Uric Acid 2.7 mg/dL (2.5-8.0)
[2018-02-02] MEDS: PANTOPRAZOLE 40 MG VIAL IV SCH (07:34)
[2018-02-02] MEDS: CARVEDILOL 3.125 MG TABLET PO SCH (07:35)
[2018-02-02] MEDS: 0.9 % SODIUM CHLORIDE 10 ML SYRINGE IV SCH (09:10)
--- NOTE | 2018-02-02 12:11 | Discharge Summary ---
Providers - Providers Patient information: Note initiated : 02/02/18 at 12:10 pm Service Date, if different from initiated Date: [] Patient: Zeynep Moreno 72 y/o F admitted on 01/31/18 for Laparotomy Exploration General. Chief Complaint: [] Date of admission: 01/31/18 Discharge date: 02/02/18 Attending physician: Kiara Kendall Hospitalization Hospital course: 72-year-old female admitted on January 31 with complaint of increasing abdominal pain with nausea but no vomiting. The pain was increasing in severity and was localized to the lower abdomen. She had a CT scan done which showed dilated loops of small bowel in the lower abdomen with a swirl pattern to the mesenteric vessels. She had fullness in the lower abdomen with diffuse tenderness and she had continued pain. She was admitted started on analgesics and antiemetics with IV hydration. After stabilization for surgery she was scheduled however during the night she had a small bowel movement and passed some flatus so a small bowel follow-through was done. Small bowel follow- through showed complete transit of contrast through the bowel in 1 hour 40 minutes. Since that time she has had multiple bowel movements and she is been advanced to a regular diet without difficulty. Follow-up abdominal x-ray shows complete emptying of the small bowel with small amount of gas and a nondistended colon. Patient is now asymptomatic and is discharged home in stable satisfactory condition. Discharge diagnosis: partial small bowel obstruction Secondary discharge diagnosis: History of metastatic ovarian cancer Diabetes mellitus type 2 Hypertension Central chronic obstructive sleep apnea Reason for admission: abdominal pain with symptoms of obstruction Procedures: None Pertinent studies/significant findings: CT of abdomen and pelvis with oral contrast Gastrografin small bowel follow Complications: None Exam Temp Pulse Resp BP Pulse Ox 97.1 F 68 16 136/80 96 02/02/18 07:20 02/02/18 07:20 02/02/18 07:20 02/02/18 07:20 02/02/18 07:20 - General physical appearance well developed, well nourished, no distress - Eyes PERRL, normal ocular movement - ENT normal pinna, normal nares, normal mucosa, no hearing loss, no congestion - Head Head exam IM: Present: atraumatic, normocephalic - Neck no masses, no bruits, trachea midline, no lymphadectomy, no venous distension - Cardiovascular Cardiovascular exam IM: Present: normal rate and rhythm - Respiratory normal expansion, normal respiratory effort, clear to percussion, clear to auscultation - Abdomen Abdomen: Present: soft, non tender, bowel sounds Hernia: Present: none - Genitourinary Present: normal external genitalia - Integumentary Present: no rash, no growths, no abnormal pigmentation - Neurologic Present: normal coordination (dressing and electrocautery will remain in), normal sensation - Musculoskeletal Present: normal gait ( thank you), normal posture - Psychiatric Present: oriented to time, oriented to person, oriented to place, speech is normal, memory intact Discharge Plan - Patient/Caregiver Discharge Instructions Activity: increase activity as tolerated Diet: Regular Diet Additional Instructions: Use MiraLAX 17 g in 8 ounces of liquid once or twice daily Return to the office or emergency room as needed - Follow up Plan Follow up with: Boom Shannon MD [Primary Care Provider] - Disposition: Home, Self-Care Prognosis: Good Rehab Potential: Good I certify that the patient requires SNF services.: No Overall status at discharge: patient is back to baseline Pending Studies Resuscitation Status Full Code Diet Regular Diet Start WedFeb 02 1155 Carvedilol (Coreg) 3.125 mg PO BIDCC [facility] Last Admin: 02/02/18 07:35 Dose: 3.125 mg Admin: 02/01/18 18:06 Dose: 3.125 mg Gabapentin (Neurontin) 1,200 mg PO HS [facility] Last Admin: 02/01/18 21:44 Dose: 1,200 mg Heparin Sodium (Porcine) (Heparin Flush) 2 ml IV Q12 [facility] Last Admin: 02/02/18 09:09 Dose: 2 ml Admin: 02/01/18 21:46 Dose: 2 ml Admin: 02/01/18 09:00 Dose: 2 ml Admin: 01/31/18 20:34 Dose: 2 ml Sodium Chloride (Sodium Chloride 0.9%) 1,000 mls @ 150 mls/hr IV .Q6H40M [facility] Last Admin: 02/02/18 09:10 Dose: Not Given Admin: 02/02/18 05:14 Dose: 150 mls/hr Infusion: 02/02/18 05:14 Dose: 150 mls/hr Admin: 02/02/18 04:01 Dose: Not Given Admin: 02/01/18 19:40 Dose: 150 mls/hr Admin: 02/01/18 16:29 Dose: Infusion: 02/01/18 15:07 Dose: 150 mls/hr Admin: 02/01/18 08:26 Dose: 150 mls/hr Infusion: 02/01/18 07:26 Dose: 150 mls/hr Admin: 02/01/18 00:45 Dose: 150 mls/hr Infusion: 01/31/18 23:45 Dose: 150 mls/hr Admin: 01/31/18 22:03 Dose: Not Given Infusion: 01/31/18 20:45 Dose: 150 mls/hr Infusion: 01/31/18 16:40 Dose: 0 mls/hr Admin: 01/31/18 12:59 Dose: 150 mls/hr Admin: 01/31/18 11:54 Dose: Not Given Piperacillin Sod/Tazobactam (Sod 3.375 gm/ Dextrose) 50 mls @ 100 mls/hr IV Q6H [facility] Last Admin: 02/02/18 12:06 Dose: 100 mls/hr Infusion: 02/02/18 05:43 Dose: 100 mls/hr Admin: 02/02/18 05:13 Dose: 100 mls/hr Infusion: 02/02/18 02:09 Dose: 0 mls/hr Admin: 02/01/18 23:52 Dose: 100 mls/hr Infusion: 02/01/18 19:09 Dose: 0 mls/hr Admin: 02/01/18 18:07 Dose: 100 mls/hr Infusion: 02/01/18 16:16 Dose: 0 mls/hr Admin: 02/01/18 13:30 Dose: 100 mls/hr Infusion: 02/01/18 06:25 Dose: 0 mls/hr Admin: 02/01/18 05:52 Dose: 100 mls/hr Infusion: 02/01/18 00:45 Dose: 0 mls/hr Admin: 02/01/18 00:05 Dose: 100 mls/hr Infusion: 01/31/18 21:05 Dose: 0 mls/hr Admin: 01/31/18 20:29 Dose: 100 mls/hr Infusion: 01/31/18 16:35 Dose: 0 mls/hr Admin: 01/31/18 16:01 Dose: 100 mls/hr Losartan Potassium (Cozaar) 100 mg PO HS [facility] Last Admin: 02/01/18 21:45 Dose: 100 mg Metoclopramide HCl (Reglan) 10 mg IV Q6 [facility] Last Admin: 02/02/18 12:06 Dose: 10 mg Admin: 02/02/18 05:14 Dose: 10 mg Admin: 02/01/18 23:52 Dose: 10 mg Admin: 02/01/18 18:06 Dose: 10 mg Admin: 02/01/18 12:59 Dose: 10 mg Admin: 02/01/18 05:56 Dose: 10 mg Admin: 02/01/18 00:05 Dose: 10 mg Admin: 01/31/18 17:26 Dose: 10 mg Morphine Sulfate (Morphine) 4 mg IV Q4HP PRN PRN Reason: PAIN LEVEL > 6 Last Admin: 02/01/18 09:48 Dose: 4 mg Pantoprazole Sodium (Protonix) 40 mg IV BIDAC [facility] Last Admin: 02/02/18 07:34 Dose: 40 mg Admin: 02/01/18 18:06 Dose: 40 mg Admin: 02/01/18 08:26 Dose: 40 mg Admin: 01/31/18 16:48 Dose: 40 mg Latanoprost Ophth Drops [Xalatan Ophth Drops] Eye Drops 1 dose OU HS [facility] Last Admin: 02/01/18 21:48 Dose: 1 dose Ropinirole HCl (Requip) 0.5 mg PO QPM [facility] Last Admin: 02/01/18 21:45 Dose: 0.5 mg Sodium Chloride (Saline Flush) 10 ml IV UD PRN PRN Reason: FLUSH Last Admin: 01/31/18 17:27 Dose: 10 ml Admin: 01/31/18 16:50 Dose: 10 ml Sodium Chloride (Saline Flush) 10 ml IV Q12 [facility] Last Admin: 02/02/18 09:10 Dose: 10 ml Admin: 02/01/18 21:46 Dose: 10 ml Admin: 02/01/18 08:00 Dose: 10 ml Admin: 01/31/18 20:34 Dose: 10 ml Shift Summary 02/02/18 04:06 Shift Summary by Lynne Bonilla A&Halley4. Has slept on and off tonight. No c/o pain or nausea tonight. Abdominal XR yesterday showed resolved SBO. Pt up ad ronnie to BR. Ambulated in the halls with SBA. Having loose stools. Has had several unmeasured voids tonight. Double lumen PICC to R arm flushes well with good blood return. JOANN's on. Receiving scheduled zosyn and reglan. IV to RAC is SL. VSS on RA. Calls appropriately. Very pleasant and cooperative with cares. Initialized on 02/02/18 04:06 - END OF NOTE
== END 2018-02-02 13:50 | disposition home or self-care (01) | DRG 390 ==
LOC: ED 06:43 → MEDSUR 11:45
PROVIDERS: ADMIT Family Medicine Adult Medicine; ATTEND Family Medicine Adult Medicine

== ENCOUNTER 2018-05-03 05:00 | Inpatient (IN) ==
[2018-04-21 19:43] LABS: Basophils # (Auto) 0.1 K/mcL (0.0-0.3); Basophils % (Auto) 0.7 % (0.0-2.0); Eosinophils # (Auto) 0.1 K/mcL (0.0-0.7); Eosinophils % (Auto) 1.6 % (0.0-7.0); Granulocytes % (Auto) 66.3 % (38.0-78.0); Lymphocytes # (Auto) 1.9 K/mcL (1.5-4.8); Lymphocytes % (Auto) 23.6 % (15.5-49.0); Mean Cell Volume 92.8 fL (80.0-100.0); Mean Corpuscular HGB Conc 33.6 g/dL (31.0-36.0); Mean Corpuscular Hemoglobin 31.2 pg (26.0-34.0); Monocytes # (Auto) 0.6 K/mcL (0.1-0.9); Monocytes % (Auto) 7.8 % (1.0-12.0); Platelet Count 204 K/mcL (140-440); RBC 4.54 M/mcL (4.00-5.20); Red Cell Distribution Width 13.7 % (11.5-14.5)
[2018-04-21 19:56] LABS: Blood Urea Nitrogen 26 mg/dl (8-23)
[2018-04-22 12:40] LABS: Appearance,Urine CLEAR; Bilirubin,Urine NEG (NEG); Color,Urine STRAW; Glucose,Urine (UA) NEGATIVE (NEG); Leukocyte Esterase,Urine NEG /uL (NEG); Protein,Urine NEG (NEG); Specific Gravity,Urine 1.005 (1.000-1.035); Urine Blood NEG mg/dL (<0.03); Urobilinogen,Urine NEG (NEG)
[2018-05-03] MEDS ORDERED: ceFAZolin 1 GM VIAL IV SCH (07:00)
[2018-05-03] MEDS ORDERED: CELECOXIB 200 MG CAPSULE PO SCH (07:00)
[2018-05-03] MEDS ORDERED: oxyCODONE 10 MG TAB.ER.12H PO SCH (07:00)
[2018-05-03] MEDS ORDERED: PREGABALIN 75 MG CAPSULE PO SCH (07:00)
[2018-05-03] MEDS ORDERED: 0.9 % SODIUM CHLORIDE 9 ML, KETOROLAC 30 MG, ROPIVACAINE HCL/PF 49.5 ML, EPINEPHrine 0.... IJ SCH (07:00)
[2018-05-03] MEDS ORDERED: TRANEXAMIC ACID 1,000 MG/10 ML VIAL IV ONE ×4 (07:30→10:56)
[2018-05-03] MEDS ORDERED: GLYCOPYRROLATE 0.2 MG/ML VIAL IV ONE (07:30)
[2018-05-03] MEDS ORDERED: DEXAMETHASONE 10 MG/ML VIAL IV ONE (07:30)
[2018-05-03] MEDS ORDERED: ROPIVACAINE HCL/PF 20 ML VIAL IJ ONE (07:30)
[2018-05-03] MEDS ORDERED: LIDOCAINE HCL/PF 100 MG/5 ML SYRINGE IV ONE (07:30)
[2018-05-03] MEDS ORDERED: PROPOFOL 200 MG/20 ML VIAL IV ONE (07:30)
[2018-05-03] MEDS ORDERED: ONDANSETRON 4 MG/2 ML VIAL IV ONE (07:30)
[2018-05-03] MEDS ORDERED: PHENYLEPHRINE 10 MG/ML VIAL IV ONE (07:30)
[2018-05-03] MEDS ORDERED: MIDAZOLAM 5 MG/5 ML VIAL IV ONE (07:30)
[2018-05-03] MEDS ORDERED: KETAMINE 100 MG/ML ML IV ONE (07:30)
[2018-05-03] MEDS ORDERED: GENTAMICIN SULFATE 800 MG/20 ML VIAL IR ONE (07:53)
[2018-05-03] MEDS ORDERED: BENZOCAINE/MENTHOL 1 LOZENGE PO PRN ×2 (08:08→10:56)
[2018-05-03] MEDS ORDERED: NALOXONE HCL 0.4 MG/ML VIAL IV PRN (08:08)
[2018-05-03] MEDS ORDERED: fentaNYL 100 MCG/2 ML VIAL IV PRN (08:08)
[2018-05-03] MEDS ORDERED: ACETAMINOPHEN 1,000 MG/100 ML BOTTLE IV ONE (08:08)
[2018-05-03] MEDS ORDERED: ONDANSETRON 4 MG/2 ML VIAL IV PRN ×2 (08:08→10:56)
[2018-05-03] MEDS ORDERED: FLUMAZENIL 0.1 MG/ML ML IV PRN (08:08)
[2018-05-03] MEDS ORDERED: IPRATROPIUM/ALBUTEROL 3 ML AMPUL.NEB NEB PRN (08:08)
[2018-05-03] MEDS ORDERED: MEPERIDINE 25 MG/ML SYRINGE IV PRN (08:08)
[2018-05-03] MEDS ORDERED: METHOCARBAMOL 1,000 MG/10 ML VIAL IV PRN (08:08)
[2018-05-03] MEDS ORDERED: LACTATED RINGERS 250 ML IV PRN (08:08)
[2018-05-03] MEDS ORDERED: LACTATED RINGERS 1,000 ML IV SCH (08:15)
--- NOTE | 2018-05-03 09:00 | Brief Operative Note ---
Date of procedure: 05/03/18 Pre-op diagnosis: right knee oa Post-op diagnosis: same Procedure: right total knee arthroplasty Grafts/Implants: Yes Anesthesia: GETA, spinal Complications: none Surgeon: Ridge Michelle Manager Photo: Karlie Arreola Estimated blood loss (cc): 150 Tourniquet Time (Minutes): 46 Specimens Removed/Pathology: none sent Condition: stable Disposition: PACU
[2018-05-03] MEDS ORDERED: oxyCODONE/APAP 5/325MG TABLET PO PRN (09:02)
[2018-05-03] MEDS ORDERED: LORazepam 1 MG TABLET PO PRN (09:02)
[2018-05-03] MEDS ORDERED: OMEPRAZOLE 20 MG CAPSULE PO PRN (09:02)
[2018-05-03] MEDS ORDERED: RIZATRIPTAN 10 MG TABLET PO PRN (09:02)
[2018-05-03] MEDS ORDERED: SENNOSIDES/DOCUSATE SODIUM 1 TAB TABLET PO PRN (09:02)
--- NOTE | 2018-05-03 09:19 | Operative Note ---
DATE OF OPERATION: 05/03/2018 PREOPERATIVE DIAGNOSIS: Degenerative joint disease, right knee. POSTOPERATIVE DIAGNOSIS: Degenerative joint disease, right knee. PROCEDURE: Right total knee arthroplasty. SURGEON: Trenton Michelle M.D. SWEEPER DRIVER SURGEON: Karlie Arreola PA-C ANESTHESIA: Spinal with LMA assist. ESTIMATED BLOOD LOSS: 150 mL COMPLICATIONS: None noted. SPECIMENS REMOVED: None. DRAINS: None. TOURNIQUET TIME: 46 minutes at 300 mmHg. IMPLANTS: DePuy Attune femoral posterior stabilized size 5 right narrow, DePuy Attune tibial fixed bearing insert size 5, 8 mm AOX, DePuy Attune patella medialized dome 35 mm cemented AOX, DePuy tibial based fixed bearing size 4 cemented, DePuy rapid bone cement 20 grams x4. INDICATIONS: The patient has had a long-standing history of worsening pain in the knee that has failed conservative treatment. Radiographs have confirmed advanced degenerative joint disease. After a long discussion about treatment options, the patient elected to proceed with a knee arthroplasty. The risks and benefits were discussed with the patient in detail including, but not limited to, the risks of anesthesia, problems with the heart or lungs related to anesthesia, infection, compromise or injury to the nerves and blood vessels, deep venous thrombosis, pulmonary embolism, pneumonia, continued pain after surgery, worsening pain or symptoms after surgery, swelling, loss of motion, instability, leg length discrepancy, and need for repeat surgery. DESCRIPTION OF PROCEDURE: The patient was seen in the pre-anesthesia waiting room where all questions were answered and the correct side and site were identified and marked. The patient was transferred to the operating room and administered the anesthetic and given pre-operative antibiotics. A time-out was then called. The extremity was prepped and draped, exsanguinated, and the tourniquet was inflated to 300 mmHg. A midline skin incision was then made with a standard medial parapatellar arthrotomy. Debridement of the menisci, ACL, and PCL was performed followed by balancing releases in the medial lateral plane. We then established intramedullary access to both the femur and tibia in a standard fashion. The femoral guide rochelle was initially placed with the distal femoral guide, pinned into place, and the distal femoral cut was performed and checked with a flat plate. We then turned our attention to the tibia. The intramedullary guide was placed with the proximal tibial cutting block. The block was appropriately positioned off the affected side, varus and valgus was checked with the extra-medullary guide, and the block was pinned into place. The proximal tibial cut was performed and the tibia was prepared for the tibial implant with appropriate rotation. The tibia, femur, and posterior compartment were debrided of osteophytes, loose bodies, and meniscal fragments We then used the gap balancing technique to balance extension with the first two cuts and good balancing was obtained with a 10 millimeter gap block. We turned our attention back to the femur and used the referencing block and implant to size appropriately. Using the gap balancing technique for the flexion space we set our rotation of the femur off the tibial cut. Anesthesia gave the patient 1 gram of Tranexamic Acid via an intravenous route. We placed the 4 in 1 cutting block and made anterior, posterior, and chamfer cuts. Box plasty cuts were then made in a standard fashion for the posterior stabilized prosthesis. We then completed osteophyte release and posterior capsule release from the posterior compartment. Trials were placed and we chose the polyethylene insert thickness that provided the best stability in all planes. With the trials in place, we did a measured resection for a resurfacing patella. We sized the patella and placed the patella trial and performed a lateral facetectomy with the saw and rongeur. Good tracking was obtained. We removed all trials, irrigated and dried all cut surfaces. We cemented the components into place including tibia, femur and patella. We placed a trial liner and held the knee in full extension with the patella compressed while the cement cured. We then removed all excess cement and placed the final polyethylene tibiofemoral component. Irrigation with 3 liters of antibiotic saline was then performed using jet-lavage. We let the tourniquet down and coagulated bleeding vessels. We injected a 100 cubic centimeter volume including Ropivacaine 49.25 cubic centimeters at 5 milligrams per cubic centimeter, Ketorolac 30 milligrams, and Epinephrine 0.5 milligrams into 100 cubic centimeters volume of normal saline. We closed the retinaculum with #2 Stratafix and 0 Vicryl. We closed the subcutaneous tissue and skin in layers out to Dermabond on the skin. A sterile pressure dressing was applied. All needle and sponge counts were correct. The patient was transferred to the recovery room in stable condition. ANAND:tristen Job ID: [id number] Doc ID: [id number] Trenton Michelle MD
--- NOTE | 2018-05-03 09:59 | XRay Report ---
CLINICAL INFORMATION: Total knee prostheses COMPARISON: None. FINDINGS: Total knee prostheses is anatomically aligned. No osseous abnormality. Periarticular gas and soft tissue swelling seen as expected. IMPRESSION: Negative Interpreted and Authenticated by: Ridge Potts 05/03/18
[2018-05-03] MEDS ORDERED: METHOCARBAMOL 750 MG TABLET PO PRN (10:56)
[2018-05-03] MEDS ORDERED: BISACODYL 10 MG SUPP.RECT PR PRN (10:56)
[2018-05-03] MEDS ORDERED: FLEETS ADULT ENEMA PR PRN (10:56)
[2018-05-03] MEDS ORDERED: MAGNESIUM HYDROXIDE 30 ML ORAL.SUSP PO PRN (10:56)
[2018-05-03] MEDS ORDERED: ONDANSETRON ODT 4 MG TABLET SL PRN (10:56)
[2018-05-03] MEDS ORDERED: POLYETHYLENE GLYCOL 3350 17 GM PACKET PO PRN (10:56)
[2018-05-03] MEDS: KETOROLAC 15 MG/ML VIAL IV SCH ×3 (11:51→23:17)
[2018-05-03] MEDS: 0.9 % SODIUM CHLORIDE 1,000 ML IV SCH ×2 (11:52→21:35)
[2018-05-03] MEDS: oxyCODONE/APAP 5/325MG TABLET PO PRN ×4 (12:32→21:23)
[2018-05-03] MEDS: 0.9 % SODIUM CHLORIDE 10 ML SYRINGE IV SCH ×2 (13:42→23:18)
[2018-05-03] MEDS: ceFAZolin 1 GM VIAL IV SCH ×2 (15:19→23:17)
[2018-05-03] MEDS: CARVEDILOL 3.125 MG TABLET PO SCH (17:06)
[2018-05-03] MEDS: SIMVASTATIN 10 MG TABLET PO SCH (19:57)
[2018-05-03] MEDS: SENNOSIDES 1 TABLET PO SCH (21:24)
[2018-05-03] MEDS: GABAPENTIN 300 MG CAPSULE PO SCH (21:25)
[2018-05-03] MEDS: DOCUSATE SODIUM 100 MG CAPSULE PO SCH (21:26)
[2018-05-03] MEDS: LATANOPROST OPHTH DROPS 2.5ML BOTTLE OU SCH (21:27)
[2018-05-03] MEDS: ASPIRIN 325 MG ENTERIC COATED TABLET PO SCH (21:27)
[2018-05-03] MEDS: rOPINIRole 0.25 MG TABLET PO SCH (21:32)
[2018-05-04] MEDS: oxyCODONE/APAP 5/325MG TABLET PO PRN ×6 (02:52→23:12)
[2018-05-04] MEDS: KETOROLAC 15 MG/ML VIAL IV SCH ×5 (05:50→23:34)
[2018-05-04] MEDS: 0.9 % SODIUM CHLORIDE 10 ML SYRINGE IV SCH ×4 (05:51→23:35)
--- NOTE | 2018-05-04 07:58 | Orthopedic Progress Note ---
Subjective Patient information: Note initiated : 05/04/18 at 7:56 am Service Date, if different from initiated Date: [] Patient: Zeynep Moreno 72 y/o F admitted on 05/03/18 for Right Total Knee Arthroplasty. Chief Complaint: [] Interval history: doing well. sore and slow to mobilize Objective Vital signs: Vital Signs Temp Pulse Resp BP Pulse Ox 05/04/18 04:00 97.8 F 64 16 103/66 05/03/18 23:13 98.3 F 58 L 16 109/67 94 05/03/18 19:58 97.8 F 69 12 115/74 93 05/03/18 15:46 96.2 F L 67 16 117/72 93 05/03/18 12:16 70 155/88 98 05/03/18 12:05 97.4 F 55 L 15 153/85 98 05/03/18 12:01 64 162/97 99 05/03/18 11:46 64 151/98 99 05/03/18 11:32 60 157/89 100 05/03/18 11:01 64 138/89 99 05/03/18 10:56 67 05/03/18 10:47 59 L 146/85 99 05/03/18 10:31 67 146/91 100 05/03/18 10:16 66 130/76 97 05/03/18 10:15 98 05/03/18 10:00 97 F 67 18 127/95 98 05/03/18 09:45 74 12 138/75 99 05/03/18 09:30 67 13 128/82 98 05/03/18 09:25 72 16 122/78 97 05/03/18 09:20 71 15 108/62 98 05/03/18 09:13 97.4 F 70 10 L 104/69 96 Intake and Output 05/03/18 05/04/18 05/04/18 21:59 05:59 13:59 Intake Total 980 / 980 460 / 460 Output Total 1250 / 1250 0 / 0 Balance -270 / -270 460 / 460 Intake: Oral 980 / 980 460 / 460 Output: Void Amount 1250 / 1250 0 / 0 Other: Meal Dinner Percent of Meal Consumed 100% Feeding Ability Independent Urine Appearance Clear Urine Color Bright Yellow Weight 181 lb 8 oz Intake & Output: Intake & Output 0905/04/18 05/04/18 21:59 05:59 13:59 Intake Total 980 / 980 460 / 460 Output Total 1250 / 1250 0 / 0 Balance -270 / -270 460 / 460 Weight 181 lb 8 oz Intake: Oral 980 / 980 460 / 460 Output: Void Amount 1250 / 1250 0 / 0 Other: Meal Dinner Percent of Meal Consumed 100% Feeding Ability Independent Urine Appearance Clear Urine Color Bright Yellow Incision: Yes healing Incision clean and dry: Yes Dressing: Yes clean, Yes dry, Yes intact Weight bearing status: full Neurological exam IM: Yes alert, Yes normal gait, Yes oriented X3, Yes motor sensory intact, Yes neurovascular intact Extremities exam IM: No calf tenderness, Yes Foot pink and warm, Yes neurovascular intact - Labs CBC & BMP: 05/04/18 03:52 04/21/18 16:32 Labs: Orthopedic Labs 04/21/18 16:32 PT 12.4 INR 0.9 05/04/18 04/21/18 03:52 16:32 Hgb 11.3 L 14.1 Hct 33.7 L 42.2 Assessment and Plan (1) Osteoarthritis, knee pod 1 s/p tka wbat pain control dvt prophylaxis d/c planning - home tomorrow or wednesday Status: Acute
[2018-05-04] MEDS: TRIAMTERENE/HYDROCHLOROTHIAZID 1 TABLET PO SCH (08:12)
[2018-05-04] MEDS: metFORMIN 850 MG TABLET PO SCH (08:12)
[2018-05-04] MEDS: CARVEDILOL 3.125 MG TABLET PO SCH ×2 (08:13→17:24)
[2018-05-04] MEDS: DOCUSATE SODIUM 100 MG CAPSULE PO SCH ×2 (08:13→20:45)
[2018-05-04] MEDS: ASPIRIN 325 MG ENTERIC COATED TABLET PO SCH ×2 (08:13→20:45)
[2018-05-04] MEDS: LATANOPROST OPHTH DROPS 2.5ML BOTTLE OU SCH (20:43)
[2018-05-04] MEDS: SIMVASTATIN 10 MG TABLET PO SCH (20:44)
[2018-05-04] MEDS: GABAPENTIN 300 MG CAPSULE PO SCH (20:44)
[2018-05-04] MEDS: rOPINIRole 0.25 MG TABLET PO SCH (20:45)
[2018-05-04] MEDS: SENNOSIDES 1 TABLET PO SCH (20:45)
[2018-05-04] MEDS ORDERED: LOSARTAN 50 MG TABLET PO SCH (21:00)
[2018-05-05] MEDS: oxyCODONE/APAP 5/325MG TABLET PO PRN ×2 (03:04→07:54)
[2018-05-05] MEDS: KETOROLAC 15 MG/ML VIAL IV SCH (05:55)
[2018-05-05] MEDS: 0.9 % SODIUM CHLORIDE 10 ML SYRINGE IV SCH (05:56)
--- NOTE | 2018-05-05 06:39 | Discharge Summary ---
Providers - Providers Patient information: Note initiated : 05/05/18 at 6:37 am Service Date, if different from initiated Date: [] Patient: Zeynep Moreno 72 y/o F admitted on 05/03/18 for Right Total Knee Arthroplasty. Chief Complaint: [POD #2 s/p right TKA Patient doing well today. Over did it activity [place] yesterday and got a little sore, but feeling better. Denies CP, SOB, numbness, tingling, calf pain. Ambulating okay] Discharge date: 05/05/18 Hospitalization Hospital course: Patient brought to OR 2 days ago for right TKA which went on without complication. She was admitted for 2 nights on the floor for medical management and postoperative care. She will discharge to home today and follow up in clinic in 10-14 days. She had no complications during her stay in the hospital. Discharge diagnosis: knee osteoarthritis Exam - Exam Incision healing: Yes Incision draining: No Incision red: No Incision swollen: No Incision inflamed: No Clean and dry: Yes Weight bearing status: as tolerated Range of motion: full ankle/foot. DP/PT pulses 2+. NVI. Dressing CDI Ortho Discharge - TKA - Patient Instructions Diet: Regular Diet Activity: weight bearing as tolerated Total Knee Protocol: For Total Knee: Start ROM DENNIS with stationary bike or rocking chair. Work on gaining full extension of knee. Posterior dislocation precautions provided. Hip abductor strengthening and gait training instructions provided. Apply Cryocuff as instructed. Dressing Care: May shower in 2 days, Other (dermabond) - Follow Up Plan Follow Up Appointments: Ridge Michelle MD [Physician] - Disposition: Home, Self-Care Prognosis: Good Rehab Potential: Good I certify that the patient requires SNF services: No Overall status at discharge: patient is progressing back to baseline - Orders For Discharge Prescriptions: Aspirin [Ecotrin] 325 mg PO BID #60 tab.ec Methocarbamol [Robaxin] 750 mg PO TID #45 tab oxyCODONE/APAP [Percocet 5-325 mg] 1 - 2 tab PO Q4HP PRN #60 tab PRN Reason: Pain Level 3-6 Additional Discharge Orders: Physical Therapy at Discharge - TKA Location: None Selected Pending Studies Resuscitation Status Full Code Diet Regular Diet Start WedMay 03 1100 Aspirin (Ecotrin) 325 mg PO BID [facility] Last Admin: 05/04/18 20:45 Dose: 325 mg Admin: 05/04/18 08:13 Dose: 325 mg Admin: 05/03/18 21:27 Dose: 325 mg [facility] Last Admin: 05/04/18 17:24 Dose: 3.125 mg Admin: 05/04/18 08:13 Dose: 3.125 mg Admin: 05/03/18 17:06 Dose: 3.125 mg Docusate Sodium (Colace) 100 mg PO BID [facility] Last Admin: 05/04/18 20:45 Dose: 100 mg Admin: 05/04/18 08:13 Dose: 100 mg Admin: 05/03/18 21:26 Dose: 100 mg Gabapentin (Neurontin) 1,200 mg PO [facility] Last Admin: 05/04/18 20:44 Dose: 1,200 mg Admin: 05/03/18 21:25 Dose: 1,200 mg Latanoprost (Xalatan Ophth Drops) 1 gtt OU [facility] Last Admin: 05/04/18 20:43 Dose: 1 gtt Admin: 05/03/18 21:27 Dose: 1 gtt Losartan Potassium (Cozaar) 100 mg PO [facility] Last Admin: 05/04/18 20:44 Dose: 100 mg Magnesium Hydroxide (Milk Of Magnesia) 30 ml PO BIDP PRN PRN Reason: Constipation Last Admin: 05/04/18 20:44 Dose: 30 ml Met[facility] (Glucophage) [facility] Last Admin: 05/04/18 08:12 Dose: 850 mg Methocarbamol (Robaxin) 750 mg PO Q6HP PRN PRN Reason: Muscle Spasm Last Admin: 05/04/18 23:12 Dose: 750 mg Morphine Sulfate (Morphine) 0 mg IV Q1HP PRN PRN Reason: PAIN LEVEL > 6 Last Admin: 05/05/18 01:41 Dose: 2 mg Admin: 05/05/18 00:48 Dose: 2 mg Omeprazole (Prilosec) 20 mg PO DAILYP PRN PRN Reason: GERD Last Admin: 05/04/18 17:23 Dose: 20 mg Oxycodone/Acetaminophen (Percocet 5-325 Mg) 0 tab PO Q4HP PRN PRN Reason: PAIN LEVEL 3-6 Last Admin: 05/05/18 03:04 Dose: 2 tab Admin: 05/04/18 23:12 Dose: 2 tab Admin: 05/04/18 19:44 Dose: 2 tab Admin: 05/04/18 15:20 Dose: 2 tab Admin: 05/04/18 11:24 Dose: 2 tab Admin: 05/04/18 07:21 Dose: 2 tab Admin: 05/04/18 02:52 Dose: 2 tab Admin: 05/03/18 21:23 Dose: 2 tab Admin: 05/03/18 17:05 Dose: 2 tab Admin: 05/03/18 13:16 Dose: 1 tab Admin: 05/03/18 12:32 Dose: 1 tab Polyethylene Glycol (Miralax) 17 gm PO DAILYP PRN PRN Reason: Constipation Last Admin: 05/04/18 15:37 Dose: 17 gm Ropinirole HCl (Requip) 0.5 mg PO QPM [facility] Last Admin: 05/04/18 20:45 Dose: 0.5 mg Admin: 05/03/18 21:32 Dose: 0.5 mg Senna (Senokot) 2 tab PO HS [facility] Last Admin: 05/04/18 20:45 Dose: 2 tab Admin: 05/03/18 21:24 Dose: 2 tab Simvastatin (Zocor) 5 mg PO HS [facility] Last Admin: 05/04/18 20:44 Dose: 5 mg Admin: 05/03/18 19:57 Dose: 5 mg Sodium Chloride (Saline Flush) 10 ml IV Q8 [facility] Last Admin: 05/05/18 05:56 Dose: 10 ml Admin: 05/04/18 23:35 Dose: 10 ml Admin: 05/04/18 17:24 Dose: 10 ml Admin: 05/04/18 06:24 Dose: 10 ml Admin: 05/03/18 23:18 Dose: 10 ml Admin: 05/03/18 13:42 Dose: Not Given Triamterene/HCTZ (Maxzide 25) 1 tab PO DAILY [facility] Last Admin: 05/04/18 08:12 Dose: 1 tab Shift Summary 05/05/18 04:46 Shift Summary by Willow Mars&O. Up ad ronnie in room and in hallways. She did a little too much and pain became intense, requiring 2mg Morphine IV x2 through night. Otherwise she has had 5 mg Percocet 2 tabs Q4h and scheduled Toradol. Dressing to Rt knee in CDI. Took MOM r/t no BM since day before admit, pt had a moderate amount of loose stool around 0300. Voiding in BR, QS. SL 22G IV to Right hand. Plans to d/c today. Initialized on 05/05/18 04:46 - END OF NOTE
[2018-05-05] MEDS: DOCUSATE SODIUM 100 MG CAPSULE PO SCH (07:54)
[2018-05-05] MEDS: ASPIRIN 325 MG ENTERIC COATED TABLET PO SCH (07:54)
[2018-05-05] MEDS: metFORMIN 850 MG TABLET PO SCH (07:54)
[2018-05-05] MEDS: CARVEDILOL 3.125 MG TABLET PO SCH (07:54)
[2018-05-05] MEDS: TRIAMTERENE/HYDROCHLOROTHIAZID 1 TABLET PO SCH (07:55)
== END 2018-05-05 10:54 | disposition home or self-care (01) | DRG 470 ==
LOC: MEDSUR 05:00
PROVIDERS: ADMIT Orthopaedic Surgery Sports Medicine; ATTEND Orthopaedic Surgery Sports Medicine